=== PATIENT | female | born 1955 | race Caucasian/White ===

== ENCOUNTER 2018-05-31 00:23 | Inpatient (IN) | payer BC ==
[2018-05-31] MEDS ORDERED: ACETAMINOPHEN 1000 MG/100 ML VIAL (NON FORMULARY) IVPB ONE ×2 (00:59→15:15)
--- NOTE | 2018-05-31 01:07 | PDOC ---
History of Present Illness - General Chief Complaint: Shortness of Breath Stated Complaint: DIFFICULTY BREATHING Time Seen by Provider: 05/31/18 00:59 History Source: Patient - History of Present Illness Initial Comments: 05/31/18 01:09 The patient is a 63 year old female with no reported significant PMH who presents to our ED c/o acute onset of shortness of breath. States the shortness of breath started yesterday morning and worsened throughout the day prompting her visit to the ED. Notes a 1 month h/o productive (greenish and whitish) cough. Chest pain with coughing. Evaluated by PMD last week given albuterol inhaler and 4 day course of antibiotic (cannot recall name). States she used the inhaler all day today with little relief of her symptoms. ROS is positive for arm and back ache that started today. The patient denies abdominal pain, nausea/vomiting, diarrhea/constipation, dysuria/hematuria, numbness tingling. NKDA Surgical: C-S x2 Social: denies toxic habits PMD: Cannot recall name, as per EMR, orders placed by Nkechi Antoine and Main Caputo (analytical research chemist) Past History - Past Medical History Allergies/Adverse Reactions: Allergies Allergy/AdvReac Type Severity Reaction Status Date / Time No Known Allergies Allergy Verified 05/31/18 00:52 Home Medications: Ambulatory Orders Albuterol Sulfate [Proair Hfa] 8.5 gm IH Q6H 05/31/18 - Suicide/Smoking/Psychosocial Hx Smoking History: Never smoked Have you smoked in the past 12 months: No Information on smoking cessation initiated: No Hx Alcohol Use: No Drug/Substance Use Hx: No Review of Systems - Review of Systems Constitutional: No: Chills, Fever HEENTM: Yes: Nose Congestion, Throat Pain. No: Blurred Vision Respiratory: Yes: Shortness of Breath, Wheezing, Productive cough. No: Hemoptysis Cardiac (ROS): No: Lightheadedness, Palpitations, Syncope ABD/GI: No: Constipated, Diarrhea, Nausea, Vomiting *Physical Exam - Vital Signs Last Vital Signs Temp Pulse Resp BP Pulse Ox 100.6 F H 110 H 18 169/82 96 05/31/18 00:30 05/31/18 00:30 05/31/18 00:30 05/31/18 00:30 05/31/18 00:30 - Physical Exam Comments: 05/31/18 01:49 On 2L NC General Appearance: Yes: Appropriately Dressed, Thin HEENT: positive: Normal Voice. negative: Pharyngeal Erythema, Tonsillar Exudate , Tonsillar Erythema, TM Bulging, TM Dull Neck: positive: Trachea midline, Supple Respiratory/Chest: positive: Other (Scattered wheezing on anterior and posterior lung lee) Cardiovascular: positive: S1, S2, Tachycardia Gastrointestinal/Abdominal: positive: Normal Bowel Sounds, Soft. negative: Distended, Guarding, Rebound, Tenderness Extremity: positive: Normal Capillary Refill, Normal Inspection Integumentary: positive: Normal Color, Dry, Warm Heart Score/ECG Review - ECG Impressions Comment:: 05/31/18 02:39 ECG shows Sinus Tachycardia (HR 109) flattened T wave in V6, in comparison to ECG dated 09/10/2005 w/TWI in V6 ED Treatment Course - LABORATORY CBC & Chemistry Diagram: 05/31/18 01:30 05/31/18 01:30 Medical Decision Making - Medical Decision Making 05/31/18 01:27 63 year old female with acute onset of dyspnea. Tachycardic (114), Hypertensive (169/82) Febrile (100.6) @ presentation. Frontal diagnosis: PNA, Influenza, Viral syndrome, r/o ACS (less likely), r/o PE (less likely, no recent travel/immobilization). Will obtain basic labs, Influenza, CXR, UA/ Urine culture, CT Chest (given patient's 1 month h/o symptoms). 05/31/18 01:50 Reassessed @ bedside, trial off NC --> SpO@ 94%; Rectal Temp 100.6 05/31/18 02:29 CMP significant for CK 843 - unlikely rhabdo, however will give IV NS No leukocytosis CT pending 05/31/18 03:14 Influenza negative; @ CT 05/31/18 03:48 CT shows ground glass density in [place] - possibly developing PNA. Will start empiric coverage with Ceftriaxone/Azithro; patient s/p 2nd Duo Neb - remains tachycardic 130's; will reassess in 1 hour 05/31/18 04:18 Patient remains tachycardic, 94% on 2 L; given patient's new increased O2 demand and likely bronchitis --> PNA, will admit for further evaluation 05/31/18 04:30 Case d/w Dr. Gray; will admit for observation; patient counseled on plan of care; amenable to admission *DC/Admit/Observation/Transfer Diagnosis at time of Disposition: Pneumonia, Tachycardia, Increased oxygen demand, Tachypnea - Discharge Dispostion Condition at time of disposition: Fair Decision to Admit order: Yes - Referrals - Patient Instructions - Post Discharge Activity
--- NOTE | 2018-05-31 01:08 | PDOC ---
Attending Attestation - HPI HPI: 05/31/18 01:57 The patient is a 63 year old female, with no significant past medical history, who presents to the emergency department with, 2 days of shortness of breath. Patient endorses an associated 1 month of a productive cough with yellowish/ green sputum and chest pain secondary to her cough. She saw her PCP last week for the cough and was placed on an unknown antibiotic and albuterol inhaler, without relief prompting her visit to the ER tonight. She denies recent fevers, chills, headache or dizziness. She denies recent nausea, vomit, diarrhea or constipation. She denies recent dysuria, frequency, urgency or hematuria. Allergies: NKDA - Physicial Exam PE: 05/31/18 02:23 GENERAL: Tachypneic. HEAD: Normal with no signs of trauma. EYES: PERRLA, EOMI, sclera anicteric, conjunctiva clear. ENT: Ears normal, nares patent, oropharynx clear without exudates. Moist mucous membranes. NECK: Normal range of motion, supple without lymphadenopathy, JVD, or masses. +LUNGS: 96% on room air while sitting upright. Expiratory rhonchi. Speaking in 3 word sentences. +HEART:Tachycardic. No murmur, rub or gallop. ABDOMEN: Soft, nontender, normoactive bowel sounds. No guarding, no rebound. No masses palpable. EXTREMITIES: Normal range of motion, no edema. No clubbing or cyanosis. No erythema, or tenderness. NEUROLOGICAL: Cranial nerves II through XII grossly intact. Normal speech. No focal neurological deficits. MUSCULOSKELETAL: Back non-tender to palpation, no CVA tenderness SKIN: Warm, Dry, normal turgor, no rashes or lesions noted. - Medical Decision Making 05/31/18 03:47 EXAM: CTA CHEST No pulmonary embolism. No aortic dissection or aneurysm. Nonspecific ground glass densities left upper lobe, correlate clinically for slight possibility of developing pneumonia or atypical infection. No pleural effusions. Mediastinal lymph nodes less than 1 cm short axis. One or more of the following dose reduction techniques were used: automated exposure control, adjustment of the mA and/or kV according to patient size, use of iterative reconstructive technique. Read by: Sharla Carter M.D. <Minesh Ford - Last Filed: 05/31/18 03:47> - Resident Resident Name: Itzel Richardson - ED Attending Attestation I have performed the following: I have examined & evaluated the patient, The case was reviewed & discussed with the resident, I agree w/resident's findings & plan, Exceptions are as noted - Critical Care Time Total Critical Care Time: 60 Critical Care Statement: The care of this patient involved high complexity decision making to prevent further life threatening deterioration of the patient 's condition and/or to evaluate & treat vital organ system(s) failure or risk of failure. - Medical Decision Making Ms Gaston is a 63 yo F who presents to the ER s/p sudden onset of shortness of breath Low grade fevers No chest pain No palpitations No nausea or vomiting DD: Asthma exacerbation, Bronchitis, Pneumonia, effusion Given neb CT ordered EKG ordered 05/31/18 05:05 Laboratory Tests 05/31/18 05/31/18 05/31/18 01:30 01:30 01:45 WBC 9.4 Hgb 15.6 H Hct 48.1 H Plt Count 316 BUN 13 Creatinine 0.8 Creatine Kinase 283 H CK-MB (CK-2) 6.7 H Troponin I < 0.02 Influenza A (Rapid) Negative Influenza B (Rapid) Negative CT No HI, no pheumothorax Pt Tachypneac, requiring supplemental O2 Abx ordered Nebs ordered Solumedrol Will admit to hospitalist service Clinical Impression: Severe asthma exacerbation, initial presentation Pneumonia, initial presentation 05/31/18 06:26 <Dang Zafar - Last Filed: 06/03/18 16:55> Attestations - Attestations 05/31/18 01:58 Documentation prepared by Minesh Ford, acting as medical supervisor for Dang Zafar MD. <Minesh Ford - Last Filed: 05/31/18 03:47>
[2018-05-31] MEDS ORDERED: ALBUTEROL SO4 2.5/IPRATROPIUM 0.5 INH SOL 3 ML VIAL.NEB. NEB ONE ×5 (01:18→17:45)
[2018-05-31] MEDS ORDERED: ACETAMINOPHEN INJECTION 100 ML IVPB ONE (01:19)
[2018-05-31] MEDS: ALBUTEROL SO4 2.5/IPRATROPIUM 0.5 INH SOL 3 ML VIAL.NEB. NEB SCH ×7 (01:20→20:15)
[2018-05-31 02:08] LABS: BASO % 0.6 % (0-2.0); MCH 29.3 pg (25.7-33.7)
[2018-05-31 02:19] LABS: ALBUMIN 4.2 g/dl (3.4-5.0); ALK PHOS 148 U/L (45-117); ANION GAP 5 MMOL/L (8-16); BILIRUBIN,TOTAL 0.3 mg/dL (0.2-1); BLOOD UREA NITROGEN 13 mg/dL (7-18); CALCIUM 8.8 mg/dL (8.5-10.1); CHLORIDE 104 mmol/L (98-107); CO2 31 mmol/L (21-32); CREATININE 0.8 mg/dL (0.55-1.3); GLUCOSE,RANDOM 126 mg/dL (74-106); N-TERMINAL BNP 35.5 pg/ml (5-125); POTASSIUM 4.9 mmol/L (3.5-5.1); SGOT/AST 39 U/L (15-37); SGPT/ALT 26 U/L (13-61); SODIUM 139 mmol/L (136-145); TOT PROT 8.6 g/dl (6.4-8.2)
[2018-05-31 02:20] LABS: EOS % 4.6 % (0-4.5); HEMATOCRIT 48.1 % (32.4-45.2); HEMOGLOBIN 15.6 GM/dL (10.7-15.3); LYMPH % 8.3 % (8-40); MCHC 32.3 g/dl (32.0-36.0); MEAN CELL VOLUME 90.7 fl (80-96); MEAN PLT VOLUME 8.1 fl (7.5-11.1); MONO % 6.5 % (3.8-10.2); PLATELET COUNT 316 K/MM3 (134-434); RBC 5.31 M/mm3 (3.60-5.2); RDW 13.6 % (11.6-15.6); WHITE BLOOD COUNT 9.4 K/mm3 (4.0-10.0)
[2018-05-31] MEDS ORDERED: SODIUM CHLORIDE 0.9% 500 ML INFUS.BAG IV ONE (02:28)
[2018-05-31] MEDS ORDERED: AZITHROMYCIN IVPB 500 MG in DEXTROSE 5%-WATER - 250 ML IVPB ONE (03:48)
--- NOTE | 2018-05-31 04:46 | HP ---
CHIEF COMPLAINT: SOB, Cough, Wheezing PCP: Dr. Nkechi Antoine HISTORY OF PRESENT ILLNESS: This is a 63 y/o woman with no past medical history. Who presents to the ED with a productive cough green-white phlegm and SOB x 1 month worse last night. Patient reports seeing her PMD 1-2 weeks ago for same taking an ?antibiotic, which she could not name which she completed and given a MDI with little improvement. Patient reports having chest tightness and wheezing using her MDI all day with no relief. She states "l could not lay down or sit down because I felt like I could not breath". Patient reports having fever and chills the day before. Patient denies dizziness, AP, N/V/D, constipation, dysuria. Patient denies recent travel, no exposure to sick contacts. Patient was not recently vaccinated for Influenza. ER course was notable for: (1) T Max 100.6 (2) HR 110~120s (3) CTA- neg PE, no dissection, no aneurysm, nonspecific ground glass densities left upper lobe, ?pneumonia or atypical infection, no pleural effusions (4) Rapid Influenza- neg A and B Recent Travel: None PAST MEDICAL HISTORY: None PAST SURGICAL HISTORY: Social History: Smoking: Never Alcohol: Denies Drugs: Denies Family History: Unable to Obtain due to clinical condition Allergies No Known Allergies Allergy (Verified 05/31/18 00:52) HOME MEDICATIONS: Home Medications Medication Instructions Recorded Albuterol Sulfate [Proair Hfa] 8.5 gm IH Q6H 05/31/18 REVIEW OF SYSTEMS CONSTITUTIONAL: fever, chills, Labored breathing Absent: diaphoresis, generalized weakness, malaise, loss of appetite, weight change HEENT: nasal congestion, throat pain Absent: rhinorrhea, throat swelling, difficulty swallowing, mouth swelling, ear pain, eye pain, visual changes CARDIOVASCULAR: chest tightness Absent: syncope, palpitations, irregular heart rate, lightheadedness, peripheral edema RESPIRATORY: cough, shortness of breath, dyspnea with exertion, orthopnea, wheezing Absent: stridor, hemoptysis GASTROINTESTINAL: Absent: abdominal pain, abdominal distension, nausea, vomiting, diarrhea, constipation, melena, hematochezia GENITOURINARY: Absent: dysuria, frequency, urgency, hesitancy, hematuria, flank pain, genital pain MUSCULOSKELETAL: Absent: myalgia, arthralgia, joint swelling, back pain, neck pain SKIN: Absent: rash, itching, pallor HEMATOLOGIC/IMMUNOLOGIC: Absent: easy bleeding, easy bruising, lymphadenopathy, frequent infections ENDOCRINE: Absent: unexplained weight gain, unexplained weight loss, heat intolerance, cold intolerance NEUROLOGIC: Absent: headache, focal weakness or paresthesias, dizziness, unsteady gait, seizure, mental status changes, bladder or bowel incontinence PSYCHIATRIC: Absent: anxiety, depression, suicidal or homicidal ideation, hallucinations. PHYSICAL EXAMINATION Vital Signs - 24 hr 05/31/18 05/31/18 05/31/18 00:30 02:09 02:36 Temperature 100.6 F H 100.6 F H Pulse Rate 110 H 110 H Respiratory 18 23 H Rate Blood Pressure 169/82 Blood Pressure 150/85 [Right Arm] O2 Sat by Pulse 96 98 Oximetry (%) GENERAL: Awake, alert, and fully oriented, standing at bedside in moderate respiratory distress. HEAD: Normal with no signs of trauma. EYES: Pupils equal, round and reactive to light, extraocular movements intact, sclera anicteric, conjunctiva clear. No lid lag. EARS, NOSE, THROAT: Dry mucous membranes. Ears normal, nares patent, oropharynx clear without exudates. NECK: Normal range of motion, supple without lymphadenopathy, JVD, or masses. LUNGS: Breath sounds with scattered wheezes,and coarse crackles throughout all lee, with accessory muscle use. HEART: Tachycardia with regular rhythm, normal S1 and S2 without murmur, rub or gallop. ABDOMEN: Soft, nontender, not distended, normoactive bowel sounds, no guarding, no rebound, no masses. No hepatomegaly or splenomegaly. MUSCULOSKELETAL: Normal range of motion at all joints. No bony deformities or tenderness. No CVA tenderness. UPPER EXTREMITIES: 2+ pulses, warm, well-perfused. No cyanosis. No clubbing. No peripheral edema. LOWER EXTREMITIES: 2+ pulses, warm, well-perfused. No calf tenderness. No peripheral edema. NEUROLOGICAL: Cranial nerves II-XII intact. Normal speech. Normal gait. PSYCHIATRIC: Cooperative. Good eye contact. Appropriate mood and affect. SKIN: Warm, dry, normal turgor, no rashes or lesions noted, normal capillary refill. Laboratory Results - last 24 hr 05/31/18 05/31/18 05/31/18 01:30 01:30 01:45 WBC 9.4 RBC 5.31 H Hgb 15.6 H Hct 48.1 H MCV 90.7 MCH 29.3 MCHC 32.3 RDW 13.6 Plt Count 316 MPV 8.1 Absolute Neuts (auto) 7.5 Neutrophils % 80.0 Lymphocytes % 8.3 Monocytes % 6.5 Eosinophils % 4.6 H Basophils % 0.6 Nucleated RBC % 0 Sodium 139 Potassium 4.9 Chloride 104 Carbon Dioxide 31 Anion Gap 5 L BUN 13 Creatinine 0.8 Creat Clearance w eGFR > 60 Random Glucose 126 H Calcium 8.8 Total Bilirubin 0.3 AST 39 H ALT 26 Alkaline Phosphatase 148 H Creatine Kinase 283 H Creatine Kinase Index 2.3 CK-MB (CK-2) 6.7 H Troponin I < 0.02 B-Natriuretic Peptide 35.5 Total Protein 8.6 H Albumin 4.2 Influenza A (Rapid) Negative Influenza B (Rapid) Negative Radiological Studies: 05/31/18 03:47 EXAM: CTA CHEST No pulmonary embolism. No aortic dissection or aneurysm. Nonspecific ground glass densities left upper lobe, correlate clinically for slight possibility of developing pneumonia or atypical infection. No pleural effusions. Mediastinal lymph nodes less than 1 cm short axis. One or more of the following dose reduction techniques were used: automated exposure control, adjustment of the MA and/or kV according to patient size, use of iterative reconstructive technique. Read by: Sharla Carter M.D. ASSESSMENT/PLAN: This is a 63 y/o woman with no past medical history. Admitted to Telemetry for Acute Respiratory Distress, Atypical Pneumonia for further evaluation of their emergent medical condition. Plan: Will admit to Telemetry secondary to respiratory distress and consistent Tachycardia 110s~120s requiring Cardiac Monitoring Concern for impending Respiratory Failure if no improvement will need to be upgraded to ICU and possible intubation Likely secondary to Atypical Pneumonia vs Reactive Airway Disease Patient Failed Outpatient Therapy CTA r/o PE see above PERC Rule 2 Wells Score 4.5 [id number] 1 Rapid Influenza done in ED- neg for A& B Appreciate Pulmonology Consult Appreciate ID Consult Duonebs x4 given in ED Continue Atrovent secondary to tachycardia Consider Xopenex Will give Mag Sulfate 2gm x1 Will give Solumederol Continue Ceftriaxone and Azithromycin for PNA Blood Cultures-pending Will order UA, Urine Culture O2 Monitor CBC, BMP FEN- PO Fluids as tolerated, replete lytes prn, Regular Diet as tolerated DVT ppx- OOB, SCDs, Heparin SQ Code Status: Full Code Dispo: Requires Inpatient Care Problem List - Problem (1) Pneumonia Code(s): J18.9 - PNEUMONIA, UNSPECIFIED ORGANISM (2) Tachycardia Code(s): R00.0 - TACHYCARDIA, UNSPECIFIED (3) SOB (shortness of breath) Code(s): R06.02 - SHORTNESS OF BREATH (4) Increased oxygen demand Code(s): R06.89 - OTHER ABNORMALITIES OF BREATHING (5) Tachypnea Code(s): R06.82 - TACHYPNEA, NOT ELSEWHERE CLASSIFIED Visit type - Emergency Visit Emergency Visit: Yes ED Registration Date: 05/31/18 Care time: The patient presented to the Emergency Department on the above date and was hospitalized for further evaluation of their emergent condition. - New Patient This patient is new to me today: Yes Date on this admission: 05/31/18 - Critical Care Critical Care patient: Yes Total Critical Care Time (in minutes): 40 Critical Care Statement: The care of this patient involved high complexity decision making to prevent further life threatening deterioration of the patient 's condition and/or to evaluate & treat vital organ system(s) failure or risk of failure.
[2018-05-31] MEDS ORDERED: IPRATROPIUM BR 0.02% 0.5 MG/2.5 ML VIAL.NEB. NEB PRN (05:01)
[2018-05-31] MEDS ORDERED: AZITHROMYCIN IVPB 500 MG/250 ML BAG IVPB ONE (05:31)
[2018-05-31] MEDS ORDERED: cefTRIAXone SODIUM 1 GM VIAL ONE (05:31)
[2018-05-31] MEDS ORDERED: MAGNESIUM SULF 50% (8.12 MEQ/2 ML-1 GM VIAL) IVPB ONE (06:20)
[2018-05-31] MEDS ORDERED: MAGNESIUM 1GM/D5W - 2 GM/200 ML IVPB IVPB ONE (06:35)
[2018-05-31] MEDS ORDERED: methylPREDNISolone NA SUCC 125 MG/2 ML VIAL IVPUSH ONE (07:24)
[2018-05-31] MEDS ORDERED: methylPREDNISolone NA SUCC 125 MG/2 ML VIAL ONE (07:35)
--- NOTE | 2018-05-31 07:45 | HOSP ---
Subjective - Review of Symptoms Pulmonary: Yes: Dyspnea Cardiovascular: Yes: Orthopnea Gastrointestinal: Yes: Other Neurological: Yes: Weakness Physical Examination Vital Signs: Vital Signs Temperature 100.6 F H 05/31/18 02:09 Pulse Rate 123 H 05/31/18 07:18 Respiratory Rate 24 H 05/31/18 07:18 Blood Pressure 154/82 05/31/18 07:18 O2 Sat by Pulse Oximetry (%) 99 05/31/18 07:18 Constitutional: Yes: Well Nourished Eyes: Yes: WNL HENT: Yes: Atraumatic Neck: Yes: Supple Cardiovascular: Yes: Tachycardia Respiratory: Yes: Accessory Muscle Use, On BiPap, Orthopnea, SOB, SOB on Exertion, Wheezes Gastrointestinal: Yes: Soft Labs: CBC, BMP 05/31/18 01:30 05/31/18 01:30 Hospitalist Encounter Assessment: Received signout on this patient and concern for labored breathing, wheezing with accessory muscle use. Went to see patient in the ED. patient sitting in chair, in moderate respiratory distress, breathing at 28 breaths per minute, with accessory muscle use. She is awake, alert and able to answer questions appropriately. Bipap applied by ED staff. Respiratory therapist at the bedside. ABG being done now. tachycardia 122, 28 breaths per minute, bp 154/82 plan: give solumedrol 125mg x 1 now start on standing solumedrol pulmonary consult continue antibiotics monitor respiratory status on bipap, may need ICU. close monitoring needed
[2018-05-31 07:50] LABS: ARTERIAL BLD GAS O2 SATURATION 97.7 % (90-98.9); ARTERIAL BLOOD GAS BASE EXCESS -2.3 meq/l (-2-2); ARTERIAL BLOOD GAS PCO2 40.8 mmHg (35-45); ARTERIAL BLOOD GAS pH 7.36 (7.35-7.45)
[2018-05-31 07:51] LABS: ALLENS TEST POSITIVE
[2018-05-31] MEDS ORDERED: ALBUTEROL SO4 0.083% IH SOL 2.5 MG/3 ML VIAL.NEB. NEB PRN ×2 (08:44→11:47)
[2018-05-31] MEDS ORDERED: ALBUTEROL SO4 2.5/IPRATROPIUM 0.5 INH SOL 3 ML VIAL.NEB. NEB SCH (08:44)
--- NOTE | 2018-05-31 08:47 | CONSULT ---
Consultation: REQUESTING PROVIDER: CONSULT REQUEST: We have been asked to medically evaluate this patient for (pulm -critical care ). HISTORY OF PRESENT ILLNESS: 63 y/o F with no PMH came to ER because of difficulty in breathing. Pt states that she was diagnosed with pneumonia 3 week ago and was started on antibiotic for 5 days. But She developed productive cough ( yellow or green sputum) after 2 week and and which was getting worse over the time. Pt states that she developed short of breath about the same time 2 week ago and was started on albuterol inhaler by her doctor which helped her initially but yesterday her breathing got worse for which she came to hospital. Also reports fever and chills just one episode yesterday, didn't check her temp. Denies dizziness, lightheadedness, chest pain, swelling in legs. Denies orthopnea, paroxysmal dyspnea. denies recent travel. Denies smoking In ER pt got solumedrol 125, azithromycin, ceftriaxone, mag 2gm. Started on BIPAP --- feeling little better donna she came to hospital. CTA done in ER no PE. REVIEW OF SYSTEMS: CONSTITUTIONAL: Absent: fever, chills, diaphoresis, g HEENT: Absent: rhinorrhea, nasal congestion, throat pain, throat swelling, difficulty swallowing, CARDIOVASCULAR: Absent: chest pain, syncope, palpitations, irregular heart rate, lightheadedness , peripheral edema RESPIRATORY: Absent: cough, shortness of breath, dyspnea with exertion, orthopnea, wheezing, stridor, hemoptysis GASTROINTESTINAL: Absent: abdominal distension, nausea, vomiting, diarrhea, constipation, melena, hematochezia GENITOURINARY: Absent: dysuria, frequency, urgency, SKIN: Absent: rash, itching, pallor HEMATOLOGIC/IMMUNOLOGIC: Absent: easy bleeding, easy bruising, NEUROLOGIC: Absent: headache, focal weakness or paresthesias, dizziness, unsteady gait, seizure, mental status changes, bladder or bowel incontinence PHYSICAL EXAMINATION Vital Signs - 24 hr 05/31/18 05/31/18 05/31/18 00:30 02:09 02:36 Temperature 100.6 F H 100.6 F H Pulse Rate 110 H 110 H Pulse Rate [ Apical] Respiratory 18 23 H Rate Blood Pressure 169/82 Blood Pressure 150/85 [Right Arm] O2 Sat by Pulse 96 98 Oximetry (%) 11/05/31/18 05/31/18 07:04 07:18 07:43 Temperature Pulse Rate Pulse Rate [ 130 H 123 H 117 H Apical] Respiratory 34 H 24 H 24 H Rate Blood Pressure Blood Pressure 154/82 154/82 [Right Arm] O2 Sat by Pulse 95 99 100 Oximetry (%) GENERAL: Awake, alert, and fully oriented, in no acute distress. HEAD: Normal with no signs of trauma. EARS, NOSE, THROAT: Ears normal, nares patent, oropharynx clear without exudates. Moist mucous membranes. NECK: Normal range of motion, supple without lymphadenopathy, JVD, or masses. LUNGS: b/l corse breathing, expiration wheezing present more on R side, tachypnia, no accessory muscle use, speaking in full sentences HEART: Regular rate and rhythm, normal S1 and S2 without murmur, tachycardia ABDOMEN: Soft, nontender, not distended, normoactive bowel sounds, no guarding, no rebound, no masses. MUSCULOSKELETAL: Normal range of motion at all joints. No bony deformities or tenderness. No CVA tenderness. UPPER EXTREMITIES: 2+ pulses, warm, well-perfused. No cyanosis. LOWER EXTREMITIES: warm, well-perfused. No calf tenderness. No peripheral edema. SKIN: Warm, dry, Laboratory Results - last 24 hr 05/31/18 05/31/18 05/31/18 01:30 01:30 01:45 WBC 9.4 RBC 5.31 H Hgb 15.6 H Hct 48.1 H MCV 90.7 MCH 29.3 MCHC 32.3 RDW 13.6 Plt Count 316 MPV 8.1 Absolute Neuts (auto) 7.5 Neutrophils % 80.0 Lymphocytes % 8.3 Monocytes % 6.5 Eosinophils % 4.6 H Basophils % 0.6 Nucleated RBC % 0 Anticoagulation Therapy Puncture Site ABG pH ABG pCO2 at Pt Temp ABG pO2 at Pt Temp ABG HCO3 ABG O2 Sat (Measured) ABG O2 Content ABG Base Excess Subhash Test O2 Delivery Device Oxygen Flow Rate Vent Mode Vent Rate Mechanical Rate Pressure Support Vent Sodium 139 Potassium 4.9 Chloride 104 Carbon Dioxide 31 Anion Gap 5 L BUN 13 Creatinine 0.8 Creat Clearance w eGFR > 60 Random Glucose 126 H Calcium 8.8 Total Bilirubin 0.3 AST 39 H ALT 26 Alkaline Phosphatase 148 H Creatine Kinase 283 H Creatine Kinase Index 2.3 CK-MB (CK-2) 6.7 H Troponin I < 0.02 B-Natriuretic Peptide 35.5 Total Protein 8.6 H Albumin 4.2 Influenza A (Rapid) Negative Influenza B (Rapid) Negative 05/31/18 07:45 WBC RBC Hgb Hct MCV MCH MCHC RDW Plt Count MPV Absolute Neuts (auto) Neutrophils % Lymphocytes % Monocytes % Eosinophils % Basophils % Nucleated RBC % Anticoagulation Therapy No Result Required. Puncture Site Right radial ABG pH 7.36 ABG pCO2 at Pt Temp 40.8 ABG pO2 at Pt Temp 108.0 H ABG HCO3 22.5 ABG O2 Sat (Measured) 97.7 ABG O2 Content 19.9 ABG Base Excess -2.3 L Subhash Test Positive O2 Delivery Device No Result Required. Oxygen Flow Rate No Result Required. Vent Mode No Result Required. Vent Rate No Result Required. Mechanical Rate No Result Required. Pressure Support Vent No Result Required. Sodium Potassium Chloride Carbon Dioxide Anion Gap BUN Creatinine Creat Clearance w eGFR Random Glucose Calcium Total Bilirubin AST ALT Alkaline Phosphatase Creatine Kinase Creatine Kinase Index CK-MB (CK-2) Troponin I B-Natriuretic Peptide Total Protein Albumin Influenza A (Rapid) Influenza B (Rapid) Active Medications Generic Name Dose Route Start Last Admin Trade Name Freq PRN Reason Stop Dose Admin Albuterol Sulfate 1 amp 05/31/18 08:44 Ventolin 0.083% Nebulizer Soln - NEB Q4H PRN SHORT OF BREATH/WHEEZING Albuterol/Ipratropium 1 amp 05/31/18 08:44 Duoneb - NEB RQID [facility] Azithromycin 500 mg in 250 mls @ 250 mls/hr 06/01/18 10:00 Zithromax 500mg Ivpb (Pre-Docked) IVPB DAILY [facility] Ceftriaxone Sodium 1 gm/ 50 mls @ 200 mls/hr 06/01/18 10:00 Dextrose IVPB DAILY [facility] Protocol Sodium Chloride 1,000 mls @ 75 mls/hr 05/31/18 08:45 Normal Saline - IV ASDIR KYAW Ipratropium [place] 1 amp 05/31/18 08:00 Atrovent 0.02% Nebulizer - NEB RQID [facility] Methylprednisolone Sodium Succinate 60 mg 05/31/18 10:00 Solu-Medrol - IVPUSH Q8H-IV [facility] Methylprednisolone Sodium Succinate 40 mg 05/31/18 09:00 Solu-Medrol - IVPUSH Q6H-IV [facility] Pantoprazole Sodium 40 mg 05/31/18 10:00 Protonix Iv IVPUSH DAILY [facility] ABG Results ABG pH 7.36 (7.35-7.45) 05/31/18 07:45 ABG pCO2 at Pt Temp 40.8 mmHg (35-45) 05/31/18 07:45 ABG pO2 at Pt Temp 108.0 mmHg (80-100) H 05/31/18 07:45 ABG HCO3 22.5 meq/L (22-26) 05/31/18 07:45 ABG O2 Sat (Measured) 97.7 % (90-98.9) 05/31/18 07:45 ABG O2 Content 19.9 % vol (15-22) 05/31/18 07:45 ABG Base Excess -2.3 meq/l (-2-2) L 05/31/18 07:45 ASSESSMENT/PLAN: 63 y/o F with no PMH who was diagnosed with pneumonia 3 week ago now came to ER because of difficulty in breathing and cough. Foud to have wheezing b/l R> L Acute respiratory failure likely from acute asthma exabration from bronchospasm from cough ? pneumonia. 02 to keep spo2 > 90. Iv steroid for now solumedrol 40mg q6h Duoneb neb qid kyaw albuterol prn antibiotics as per primary team. montelucast CT chest reviewed abg reviewed. BIPAP support for now to decrease work of breathing Dispo: We will continue to follow the patient. Thank you for this consultative opportunity. Visit type - Emergency Visit Emergency Visit: Yes ED Registration Date: 05/31/18 Care time: The patient presented to the Emergency Department on the above date and was hospitalized for further evaluation of their emergent condition. - New Patient This patient is new to me today: Yes Date on this admission: 06/13/18 - Critical Care Critical Care patient: Yes Total Critical Care Time (in minutes): 45 Critical Care Statement: The care of this patient involved high complexity decision making to prevent further life threatening deterioration of the patient 's condition and/or to evaluate & treat vital organ system(s) failure or risk of failure.
[2018-05-31] MEDS: SODIUM CHLORIDE 1,000 ML IV SCH ×3 (09:03→12:00)
[2018-05-31] MEDS: IPRATROPIUM BR 0.02% 0.5 MG/2.5 ML VIAL.NEB. NEB SCH ×2 (09:03→11:28)
[2018-05-31] MEDS ORDERED: IPRATROPIUM BR 0.02% 0.5 MG/2.5 ML VIAL.NEB. NEB ONE (09:10)
[2018-05-31] MEDS ORDERED: SODIUM CHLORIDE 1,000 ML IV STA ×2 (09:25→22:55)
[2018-05-31] MEDS ORDERED: methylPREDNISolone NA SUCC 40 MG/1 ML VIAL IVPUSH SCH ×2 (10:00→15:00)
[2018-05-31] MEDS ORDERED: PANTOPRAZOLE SODIUM 40 MG VIAL IVPUSH SCH (10:00)
[2018-05-31] MEDS ORDERED: MONTELUKAST NA 10 MG TABLET PO ONE (10:00)
--- NOTE | 2018-05-31 10:42 | PN ---
Progress Note, Physician Chief Complaint: spoke with hospitalist and RN pt is in ICU-- on BIPAP awake and alert Appears to be anxious - Current Medication List Current Medications: Active Medications Albuterol Sulfate (Ventolin 0.083% Nebulizer Soln -) 1 amp NEB Q4H PRN PRN Reason: SHORT OF BREATH/WHEEZING Albuterol/Ipratropium (Duoneb -) 1 amp NEB RQID [facility] Last Admin: 05/31/18 09:03 Dose: 1 amp Chlorhexidine Gluconate (Hibiclens For Decolonization -) 1 applic TP HS [facility] Azithromycin (Zithromax 500mg Ivpb (Pre-Docked)) 500 mg in 250 mls @ 250 mls/ hr IVPB DAILY [facility] Ceftriaxone Sodium 1 gm/ (Dextrose) 50 mls @ 200 mls/hr IVPB DAILY [facility]; Protocol Sodium Chloride (Normal Saline -) 1,000 mls @ 75 mls/hr IV ASDIR [facility] Last Admin: 05/31/18 09:03 Dose: 75 mls/hr Ipratropium [place] (Atrovent 0.02% Nebulizer -) 1 amp NEB RQID [facility] Last Admin: 05/31/18 09:03 Dose: 1 amp Methylprednisolone Sodium Succinate (Solu-Medrol -) 40 mg IVPUSH Q6H-IV [facility] Montelukast Sodium (Singulair -) 10 mg PO HS [facility] Mupirocin (Bactroban Ointment (For Decolonization) -) 1 applic NS BID [facility] Stop: 06/05/18 09:59 Pantoprazole Sodium (Protonix Iv) 40 mg IVPUSH DAILY [facility] - Objective Vital Signs: Vital Signs Temperature 99.0 F 05/31/18 09:59 Pulse Rate 118 H 05/31/18 09:59 Respiratory Rate 27 H 05/31/18 09:59 Blood Pressure 160/96 05/31/18 09:59 O2 Sat by Pulse Oximetry (%) 100 05/31/18 09:59 Constitutional: Yes: Anxious Cardiovascular: Yes: Regular Rate and Rhythm Respiratory: Yes: Diminished, Rhonchi Gastrointestinal: Yes: Normal Bowel Sounds, Soft. No: Tenderness Edema: No Neurological: Yes: Alert, Oriented Labs: CBC, BMP 05/31/18 01:30 05/31/18 01:30 Problem List - Problems (1) Acute respiratory failure with hypoxia Code(s): J96.01 - ACUTE RESPIRATORY FAILURE WITH HYPOXIA (2) Pneumonia Code(s): J18.9 - PNEUMONIA, UNSPECIFIED ORGANISM (3) SOB (shortness of breath) Code(s): R06.02 - SHORTNESS OF BREATH Assessment/Plan A/P ?pneumonia Asthma exacerbation Acute hypoxic respiratory failure -- monitor in ICU -- will need nebs -- spoke with pt's -- she was on po antibiotics for about 4 days prior - - from DR Avery's office -- iv solumedrol -- abg noted -- iv antibiotics -- check urine antigens -- dvt prophylaxis -- condition guarded
--- NOTE | 2018-05-31 11:33 | EKG ---
Test Reason : Blood Pressure : / mmHG Vent. Rate : 109 BPM Atrial Rate : 109 BPM P-R Int : 152 ms QRS Dur : 086 ms QT Int : 320 ms P-R-T Axes : 064 085 003 degrees QTc Int : 430 ms SINUS TACHYCARDIA T WAVE ABNORMALITY, CONSIDER INFERIOR ISCHEMIA ABNORMAL ECG WHEN COMPARED WITH ECG OF 10-SEP-2005 13:44, VENT. RATE HAS INCREASED BY [address] NOW DEPRESSED IN INFERIOR LEADS INVERTED T WAVES HAVE REPLACED NONSPECIFIC T WAVE ABNORMALITY IN INFERIOR LEADS Confirmed by JESSICA SINGH, JOAN ([id number]) on 05/31/2018 11:32:30 AM Referred By: Confirmed By:JOAN LOPEZ MD
[2018-05-31] MEDS ORDERED: IPRATROPIUM BR 0.02% 0.5 MG/2.5 ML VIAL.NEB. NEB SCH (12:00)
--- NOTE | 2018-05-31 12:54 | PN ---
Teaching Attending Note Name of Resident: Jorge Morin ATTENDING PHYSICIAN STATEMENT I saw and evaluated the patient. I reviewed the resident's note and discussed the case with the resident. I agree with the resident's findings and plan as documented. SUBJECTIVE: Pt seen and examined in the ICU. Admitted with shortness of breath, cough and wheezing. Now on BiPAP still tachypneic with labored breaths. Low grade fevers and mosaic attenuation seen on CTA chest. OBJECTIVE: Vital Signs Period Temp Pulse Resp BP Sys/Massey Pulse Ox Last 24 Hr 99.0 F-100.6 F 101-130 18-34 147-169/82-96 95-100 Intake & Output 05/28/18 05/29/18 05/30/18 05/31/18 23:59 23:59 23:59 23:59 Intake Total 1000 Output Total 800 Balance 200 Weight 61.552 kg Gen: tachypneic on BiPAP Heart: tachycardic, regular Lung: diffuse wheezes, rhonchi Abd: soft, nontender Ext: no edema CBC, BMP 05/31/18 01:30 05/31/18 01:30 Active Medications Albuterol Sulfate (Ventolin 0.083% Nebulizer Soln -) 1 amp NEB Q4H PRN PRN Reason: SHORT OF BREATH/WHEEZING Albuterol/Ipratropium (Duoneb -) 1 amp NEB RQ4H [facility] Last Admin: 05/31/18 11:40 Dose: 1 amp Chlorhexidine Gluconate (Hibiclens For Decolonization -) 1 applic TP HS [facility] Azithromycin (Zithromax 500mg Ivpb (Pre-Docked)) 500 mg in 250 mls @ 250 mls/ hr IVPB DAILY [facility] Ceftriaxone Sodium 1 gm/ (Dextrose) 50 mls @ 200 mls/hr IVPB DAILY [facility]; Protocol Sodium Chloride (Normal Saline -) 1,000 mls @ 75 mls/hr IV ASDIR [facility] Methylprednisolone Sodium Succinate (Solu-Medrol -) 40 mg IVPUSH Q6H-IV [facility] Montelukast Sodium (Singulair -) 10 mg PO HS [facility] Mupirocin (Bactroban Ointment (For Decolonization) -) 1 applic NS BID [facility] Stop: 06/05/18 21:59 Pantoprazole Sodium (Protonix Iv) 40 mg IVPUSH DAILY [facility] ASSESSMENT AND PLAN: Acute Bronchospasm r/o Pneumonia vs Acute Bronchitis - continue medrol - inhaled bronchodilators standing and PRN - on empiric antibiotics - send viral screen - O2 to keep Spo2 >90% - BiPAP to assist in work of breathing - ICU monitoring for tenuous respiratory status critical care time spent in reviewing chart, evaluating patient and formulating plan 35 min
--- NOTE | 2018-05-31 14:01 | CON.ID ---
Consult Consult Specialty:: infectious diseases Referred by:: Reason for Consultation:: resp fialure,pneumonia - History of Present Illness Chief Complaint: inability to breathe History of Present Illness: 63 y/o F with no PMH admitted to icu because of difficulty in breathing. Pt states that she was diagnosed with pneumonia 3 week ago and was started on antibiotic for 5 days. But then She developed productive cough( yellow or green sputum) after 2 week and and which was getting worse over the time. Pt states that she developed short of breath about the same time 2 week ago and was started on albuterol inhaler by her doctor which helped her initially but yesterday her breathing got worse for which she came to hospital. Also reports fever and chills just one episode yesterday, didn't check her temp. Denies dizziness, lightheadedness, chest pain, swelling in legs. Denies orthopnea, paroxysmal dyspnea. denies recent travel. Denies smoking In ER pt got solumedrol 125, azithromycin, ceftriaxone, mag 2gm. Started on BIPAP --- feeling little better since she came to hospital. currently on bipap - History Source History Provided By: Patient, Medical Record Limitations to Obtaining History: Clinical Condition - Past Medical History ...: No - Alcohol/Substance Use Hx Alcohol Use: No - Smoking History Smoking history: Never smoked Have you smoked in the past 12 months: No Home Medications - Allergies Allergies/Adverse Reactions: Allergies Allergy/AdvReac Type Severity Reaction Status Date / Time No Known Allergies Allergy Verified 05/31/18 00:52 - Home Medications Home Medications: Ambulatory Orders Levofloxacin [Levaquin] 500 mg PO DAILY #5 tablet 06/04/18 RX: Lactobacillus Acidophilus [Acidophilus Lactobacilli] 1 each PO DAILY #14 capsule 06/04/18 RX: Montelukast Na [Singulair -] 10 mg PO HS #30 tablet 06/04/18 RX: Pantoprazole Sodium [Protonix -] 40 mg PO DAILY #10 tablet.ec 06/04/18 RX: predniSONE [Deltasone -] 5 mg PO ASDIR #78 tab 06/04/18 RX: Albuterol Sulfate [Proair Hfa] 8.5 gm IH Q6H #1 hfa.[email or web address] 06/05/18 Review of Systems - Review of Systems Constitutional: reports: No Symptoms Eyes: reports: No Symptoms HENT: reports: No Symptoms Neck: reports: No Symptoms Cardiovascular: reports: No Symptoms Respiratory: reports: Cough, SOB, SOB on Exertion Gastrointestinal: reports: No Symptoms Genitourinary: reports: No Symptoms Breasts: reports: No Symptoms Reported Musculoskeletal: reports: No Symptoms Integumentary: reports: No Symptoms Neurological: reports: No Symptoms Endocrine: reports: No Symptoms Hematology/Lymphatic: reports: No Symptoms Psychiatric: reports: No Symptoms Physical Exam Vital Signs: Vital Signs Temperature 99.0 F 05/31/18 11:22 Pulse Rate 101 H 05/31/18 12:04 Respiratory Rate 22 H 05/31/18 12:04 Blood Pressure 147/88 05/31/18 12:04 O2 Sat by Pulse Oximetry (%) 98 05/31/18 11:22 Constitutional: Yes: Well Nourished, Calm, Moderate Distress Eyes: Yes: Conjunctiva Clear HENT: Yes: Atraumatic, Normocephalic Neck: Yes: Supple, Trachea Midline Cardiovascular: Yes: Tachycardia Respiratory: Yes: On BiPap, Poor Air Entry Gastrointestinal: Yes: Normal Bowel Sounds, Soft Musculoskeletal: Yes: WNL Extremities: Yes: WNL Neurological: Yes: Alert, Oriented Psychiatric: Yes: Alert, Oriented Labs: CBC, BMP 05/31/18 01:30 05/31/18 01:30 Imaging - Results Cat Scan: Report Reviewed, Image Reviewed Assessment/Plan Problem List - Problems (1) Acute respiratory failure with hypoxia Code(s): J96.01 - ACUTE RESPIRATORY FAILURE WITH HYPOXIA (2) Pneumonia Code(s): J18.9 - PNEUMONIA, UNSPECIFIED ORGANISM (3) SOB (shortness of breath) Code(s): R06.02 - SHORTNESS OF BREATH wheezing pneumonia plan will start patient on zosyn close monitoring for tiring if tires might need intubation continue bipap rest as per icu cc 40 min
[2018-05-31] MEDS ORDERED: PIPERACILLIN/TAZOBACTAM 3.375 GM VIAL IVPB ONE (14:12)
[2018-05-31] MEDS ORDERED: DEXTROSE 5%-WATER - 50 ML IVPB ONE (14:12)
[2018-05-31] MEDS: methylPREDNISolone NA SUCC 40 MG/1 ML VIAL IVPUSH SCH ×2 (14:15→22:13)
[2018-05-31] MEDS: PIPERACILLIN/TAZOB 3.375 GM 3.375 GM in DEXTROSE 5%-WATER - 50 ML IVPB SCH ×2 (14:16→18:00)
[2018-05-31] MEDS ORDERED: ONDANSETRON 4 MG/2 ML VIAL IVPUSH ONE (14:52)
--- NOTE | 2018-05-31 14:58 | ECHO ---
Name: KRISHNA CHURCH Exam:Adult Echocardiogram Study Date: 05/31/2018 02:00 PM Age: 63 yrs Reason For Study: SHORTNESS OF BREATH Height: 63 in Weight: 126 lb BSA: 1.6 m2 BP: 147/88 mmHg MMode/2D Measurements & Calculations IVSd: 0.77 cm Ao root diam: 2.6 cm LVIDd: 4.2 cm LA dimension: 3.2 cm LVIDs: 2.7 cm LVPWd: 0.70 cm EDV(Teich): 78.9 ml ESV(Teich): 27.0 ml Doppler Measurements & Calculations MV E max ezio: 48.4 cm/sec Med Peak E' Ezio: 6.2 cm/sec MV A max ezio: 72.1 cm/sec Med E/e': 7.8 MV E/A: 0.67 Lat Peak E' Ezio: 7.7 cm/sec Lat E/e': 6.3 Procedure The study was technically difficult with many images being suboptimal in quality. Left Ventricle The left ventricular size, thickness and function are normal. The left ventricle is not well visualiz ed. The left ventricular ejection fraction is normal. Regional wall motion abnormalities cannot be excluded d ue to limited visualization. Right Ventricle The right ventricle is not well visualized. Atria Normal left and right atrial size and function. Mitral Valve The mitral valve is not well visualized. There is no mitral valve stenosis. There is mild mitral regurgitation. Tricuspid Valve The tricuspid valve is not well visualized. There is no tricuspid stenosis. There was insufficient TR detected to calculate RV systolic pressure. Aortic Valve The aortic valve is not well visualized. No hemodynamically significant valvular aortic stenosis. No aortic regurgitation is present. Pulmonic Valve The pulmonic valve is not well visualized. Great Vessels The aortic root is not well visualized. Pericardium/Pleura Due to the poor quality of the echocardiogram, a pericardial effusion cannot be excluded. Interpretation Summary The study was technically difficult with many images being suboptimal in quality. The left ventricular size, thickness and function are normal The left ventricle is not well visualized. The left ventricular ejection fraction is normal. Regional wall motion abnormalities cannot be excluded due to limited visualization. There is mild mitral regurgitation. There was insufficient TR detected to calculate RV systolic pressure. Due to the poor quality of the echocardiogram, a pericardial effusion cannot be excluded. MD Irwin Brar 05/31/2018 02:57 PM
[2018-05-31 15:39] LABS: URINE APPEARANCE CLEAR; URINE BILIRUBIN NEGATIVE (<2.0 mg/dL); URINE COLOR STRAW; URINE GLUCOSE (UA) 3+ (NEGATIVE); URINE KETONE NEGATIVE (NEGATIVE); URINE LEUK ESTERASE NEGATIVE (NEGATIVE); URINE NITRITE NEGATIVE (NEGATIVE); URINE PROTEIN NEGATIVE (NEGATIVE); URINE UROBILINOGEN NEGATIVE mg/dL (0.2-1.0)
[2018-05-31] MEDS ORDERED: PT OWN MED DRAWER 7, Y5N ONE (21:57)
[2018-05-31] MEDS: MONTELUKAST NA 10 MG TABLET PO SCH (22:13)
[2018-05-31] MEDS: MUPIROCIN 2% TOPICAL OINTMENT FOR DECOLONIZATION NS SCH (22:13)
[2018-05-31] MEDS: CHLORHEXIDINE GLUCONATE 4% CLEANSER FOR DECOLONIZATION TP SCH (22:14)
[2018-05-31] MEDS ORDERED: ACETAMINOPHEN 325 MG TABLET (FP) PO ONE (23:45)
[2018-06-01] MEDS: ALBUTEROL SO4 2.5/IPRATROPIUM 0.5 INH SOL 3 ML VIAL.NEB. NEB SCH ×7 (00:30→20:48)
[2018-06-01] MEDS ORDERED: PIPERACILLIN/TAZOBACTAM 3.375 GM VIAL IVPB ONE ×3 (01:08→18:38)
[2018-06-01] MEDS ORDERED: DEXTROSE 5%-WATER - 50 ML IVPB ONE ×3 (01:08→18:38)
[2018-06-01] MEDS: PIPERACILLIN/TAZOB 3.375 GM 3.375 GM in DEXTROSE 5%-WATER - 50 ML IVPB SCH ×3 (02:43→18:48)
[2018-06-01] MEDS: methylPREDNISolone NA SUCC 40 MG/1 ML VIAL IVPUSH SCH ×3 (02:43→17:37)
[2018-06-01 06:15] LABS: BASO % 0.1 % (0-2.0); HEMATOCRIT 41.4 % (32.4-45.2); HEMOGLOBIN 13.2 GM/dL (10.7-15.3); LYMPH % 4.8 % (8-40); MCH 28.8 pg (25.7-33.7); MCHC 31.8 g/dl (32.0-36.0); MEAN CELL VOLUME 90.6 fl (80-96); MEAN PLT VOLUME 7.7 fl (7.5-11.1); MONO % 1.7 % (3.8-10.2); NEUT % 93.4 % (42.8-82.8); PLATELET COUNT 266 K/MM3 (134-434); RBC 4.57 M/mm3 (3.60-5.2); WHITE BLOOD COUNT 11.2 K/mm3 (4.0-10.0)
[2018-06-01 07:54] LABS: ALBUMIN 3.2 g/dl (3.4-5.0); ALK PHOS 101 U/L (45-117); ANION GAP 3 MMOL/L (8-16); BILIRUBIN,TOTAL 0.2 mg/dL (0.2-1); BLOOD UREA NITROGEN 10 mg/dL (7-18); CALCIUM 8.3 mg/dL (8.5-10.1); CHLORIDE 111 mmol/L (98-107); CO2 27 mmol/L (21-32); CREATININE 0.6 mg/dL (0.55-1.3); GLUCOSE,RANDOM 135 mg/dL (74-106); MAGNESIUM 2.7 mg/dL (1.8-2.4); PHOSPHOROUS 4.2 mg/dL (2.5-4.9); POTASSIUM 5.1 mmol/L (3.5-5.1); SGOT/AST 34 U/L (15-37); SGPT/ALT 25 U/L (13-61); SODIUM 142 mmol/L (136-145)
[2018-06-01] MEDS: AZITHROMYCIN IVPB 500 MG/250 ML BAG IVPB SCH (09:10)
[2018-06-01] MEDS: PANTOPRAZOLE SODIUM 40 MG VIAL IVPUSH SCH (09:11)
[2018-06-01] MEDS ORDERED: PT OWN MED DRAWER 7, Y5N ONE (09:14)
[2018-06-01] MEDS ORDERED: AZITHROMYCIN IVPB 500 MG/250 ML BAG IVPB SCH (10:00)
[2018-06-01] MEDS ORDERED: CEFTRIAXONE 1 GM in DEXTROSE 5%-WATER - 50 ML IVPB SCH (10:00)
--- NOTE | 2018-06-01 10:54 | PN ---
Progress Note, Physician Chief Complaint: Ms Gaston says she is feeling much better today. Says her breathing is much improved, but still getting short of breath with exertion and talking. No cp or n/v. - Current Medication List Current Medications: Active Medications Albuterol Sulfate (Ventolin 0.083% Nebulizer Soln -) 1 amp NEB Q4H PRN PRN Reason: SHORT OF BREATH/WHEEZING Last Admin: 06/01/18 02:29 Dose: 1 amp Albuterol/Ipratropium (Duoneb -) 1 amp NEB RQ4H [facility] Last Admin: 06/01/18 08:20 Dose: 1 amp Chlorhexidine Gluconate (Hibiclens For Decolonization -) 1 applic TP HS [facility] Last Admin: 05/31/18 22:14 Dose: 1 applic Azithromycin (Zithromax 500mg Ivpb (Pre-Docked)) 500 mg in 250 mls @ 250 mls/ hr IVPB DAILY [facility] Last Admin: 06/01/18 09:10 Dose: 250 mls/hr Sodium Chloride (Normal Saline -) 1,000 mls @ 75 mls/hr IV ASDIR [facility] Last Admin: 05/31/18 12:00 Dose: 75 mls/hr Piperacillin Sod/Tazobactam (Sod 3.375 gm/ Dextrose) 50 mls @ 100 mls/hr IVPB Q8H-IV [facility]; Protocol Last Admin: 06/01/18 09:10 Dose: 100 mls/hr Methylprednisolone Sodium Succinate (Solu-Medrol -) 40 mg IVPUSH Q6H-IV [facility] Last Admin: 06/01/18 08:19 Dose: 40 mg Montelukast Sodium (Singulair -) 10 mg PO HS [facility] Last Admin: 05/31/18 22:13 Dose: 10 mg Mupirocin (Bactroban Ointment (For Decolonization) -) 1 applic NS BID [facility] Stop: 06/05/18 21:59 Last Admin: 05/31/18 22:13 Dose: 1 applic Pantoprazole Sodium (Protonix Iv) 40 mg IVPUSH DAILY [facility] Last Admin: 06/01/18 09:11 Dose: 40 mg - Objective Vital Signs: Vital Signs Temperature 36.8 C 06/01/18 10:00 Pulse Rate 111 H 06/01/18 10:00 Respiratory Rate 21 H 06/01/18 10:00 Blood Pressure 112/64 06/01/18 10:00 O2 Sat by Pulse Oximetry (%) 100 06/01/18 10:33 Constitutional: Yes: Well Nourished, No Distress, Calm Cardiovascular: Yes: Regular Rate and Rhythm. No: Gallop, Murmur, Rub Respiratory: Yes: Regular, On Nasal O2, Wheezes. No: CTA Bilaterally, Rales, Rhonchi Gastrointestinal: Yes: Normal Bowel Sounds, Soft. No: Distention, Tenderness Extremities: Yes: WNL Edema: No Labs: CBC, BMP 06/01/18 05:30 06/01/18 05:30 Problem List - Problems (1) Acute bronchitis due to infection Assessment/Plan: -suspect patient has a post infectious bronchitis -currently off of bipap -continue solumedrol -continue duonebs and singulair -pulmonary following Code(s): J20.8 - ACUTE BRONCHITIS DUE TO OTHER SPECIFIED ORGANISMS (2) Acute respiratory failure with hypoxia Assessment/Plan: -much improved -bipap titrated off -on nasal cannula -continue steroids, antibiotics, and bronchodilators Code(s): J96.01 - ACUTE RESPIRATORY FAILURE WITH HYPOXIA (3) Pneumonia Assessment/Plan: -appreciate ID assistance -continue zosyn and azithromycin Code(s): J18.9 - PNEUMONIA, UNSPECIFIED ORGANISM
[2018-06-01] MEDS: SODIUM CHLORIDE 1,000 ML IV SCH (11:45)
[2018-06-01] MEDS: MUPIROCIN 2% TOPICAL OINTMENT FOR DECOLONIZATION NS SCH ×2 (12:20→23:00)
--- NOTE | 2018-06-01 13:13 | PN ---
Teaching Attending Note Name of Resident: Clark Pardo ATTENDING PHYSICIAN STATEMENT I saw and evaluated the patient. I reviewed the resident's note and discussed the case with the resident. I agree with the resident's findings and plan as documented. SUBJECTIVE: Pt seen and examined in the ICU. Breathing much improved. Less cough and wheezing. OBJECTIVE: Vital Signs Period Temp Pulse Resp BP Sys/Massey Pulse Ox Last 24 Hr 97.7 F-99.5 F 82-120 16-23 108-155/58-92 96-100 Intake & Output 05/29/18 05/30/18 05/31/18 06/01/18 23:59 23:59 23:59 23:59 Intake Total 1600 2150 Output Total 2200 Balance -600 2150 Weight 61.552 kg 57.969 kg Gen: less tachypneic Heart: tachycardic, regular Lung: better air entry, scattered wheezes Abd: soft, nontender Ext: no edema CBC, BMP 06/01/18 05:30 06/01/18 05:30 Active Medications Albuterol Sulfate (Ventolin 0.083% Nebulizer Soln -) 1 amp NEB Q4H PRN PRN Reason: SHORT OF BREATH/WHEEZING Last Admin: 06/01/18 02:29 Dose: 1 amp Albuterol/Ipratropium (Duoneb -) 1 amp NEB RQID [facility] Chlorhexidine Gluconate (Hibiclens For Decolonization -) 1 applic TP HS [facility] Last Admin: 05/31/18 22:14 Dose: 1 applic Azithromycin (Zithromax 500mg Ivpb (Pre-Docked)) 500 mg in 250 mls @ 250 mls/ hr IVPB DAILY [facility] Last Admin: 06/01/18 09:10 Dose: 250 mls/hr Sodium Chloride (Normal Saline -) 1,000 mls @ 75 mls/hr IV ASDIR [facility] Last Admin: 05/31/18 12:00 Dose: 75 mls/hr Piperacillin Sod/Tazobactam (Sod 3.375 gm/ Dextrose) 50 mls @ 100 mls/hr IVPB Q8H-IV [facility]; Protocol Last Admin: 06/01/18 09:10 Dose: 100 mls/hr Methylprednisolone Sodium Succinate (Solu-Medrol -) 40 mg IVPUSH Q8H-IV [facility] Montelukast Sodium (Singulair -) 10 mg PO HS [facility] Last Admin: 05/31/18 22:13 Dose: 10 mg Mupirocin (Bactroban Ointment (For Decolonization) -) 1 applic NS BID [facility] Stop: 06/05/18 21:59 Last Admin: 06/01/18 12:20 Dose: 1 applic Pantoprazole Sodium (Protonix Iv) 40 mg IVPUSH DAILY [facility] Last Admin: 06/01/18 09:11 Dose: 40 mg ASSESSMENT AND PLAN: Acute Respiratory Failure requiring NIPPV Acute Bronchospasm r/o Pneumonia vs Acute Bronchitis Lactic Acidosis resolved - can taper medrol - inhaled bronchodilators standing and PRN - on empiric antibiotics, can d/c if cultures negative - O2 to keep Spo2 >90% - check peak flow - BiPAP as needed to assist in work of breathing - DVT prophylaxis - can monitor on floor
--- NOTE | 2018-06-01 14:31 | PN ---
Physical Exam: SUBJECTIVE: Patient seen and examined in the ICU. Breathing much improved. Less cough and wheezing, still having green sputum. OBJECTIVE: Vital Signs Period Temp Pulse Resp BP Sys/Massey Pulse Ox Last 24 Hr 97.7 F-99.5 F 82-120 16-23 108-140/58-78 96-100 GENERAL: AOX3 NAD HEAD: NCAT EARS, NOSE, THROAT: MMM NECK: Normal range of motion, supple without lymphadenopathy, JVD, or masses. LUNGS: CTAB, no accessory muscle use, speaking in full sentences HEART: RRR, normal S1 and S2 without murmur, tachycardia ABDOMEN: Soft, NTND, normoactive bowel sounds, no guarding, no rebound, no masses. MUSCULOSKELETAL: Normal range of motion at all joints. No bony deformities or tenderness. UPPER EXTREMITIES: 2+ pulses, warm, well-perfused. No cyanosis. LOWER EXTREMITIES: warm, well-perfused. No calf tenderness. No peripheral edema. SKIN: Warm, dry, Laboratory Results - last 24 hr 05/31/18 05/31/18 05/31/18 14:51 16:00 22:00 WBC RBC Hgb Hct MCV MCH MCHC RDW Plt Count MPV Absolute Neuts (auto) Neutrophils % Lymphocytes % Monocytes % Eosinophils % Basophils % Nucleated RBC % Sodium Potassium Chloride Carbon Dioxide Anion Gap BUN Creatinine Creat Clearance w eGFR Random Glucose Lactic Acid 2.2 H* 3.4 H* Calcium Phosphorus Magnesium Total Bilirubin AST ALT Alkaline Phosphatase Creatine Kinase Creatine Kinase Index CK-MB (CK-2) Total Protein Albumin Urine Color Straw Urine Appearance Clear Urine pH 7.0 Ur Specific [place] 1.015 Urine Protein Negative Urine Glucose (UA) 3+ H Urine Ketones Negative Urine Blood Negative Urine Nitrite Negative Urine Bilirubin Negative Urine Urobilinogen Negative Ur Leukocyte Esterase Negative 06/01/18 06/01/18 06/01/18 05:30 05:30 07:00 WBC 11.2 H RBC 4.57 Hgb 13.2 Hct 41.4 MCV 90.6 MCH 28.8 MCHC 31.8 L RDW 14.0 Plt Count 266 MPV 7.7 Absolute Neuts (auto) 10.4 H Neutrophils % 93.4 H Lymphocytes % 4.8 L D Monocytes % 1.7 L Eosinophils % 0.0 D Basophils % 0.1 Nucleated RBC % 0 Sodium 142 Potassium 5.1 Chloride 111 H Carbon Dioxide 27 Anion Gap 3 L BUN 10 Creatinine 0.6 Creat Clearance w eGFR > 60 Random Glucose 135 H Lactic Acid 2.1 H Calcium 8.3 L Phosphorus 4.2 Magnesium 2.7 H Total Bilirubin 0.2 AST 34 ALT 25 Alkaline Phosphatase 101 Creatine Kinase Creatine Kinase Index CK-MB (CK-2) Total Protein 7.0 Albumin 3.2 L Urine Color Urine Appearance Urine pH Ur Specific [place] Urine Protein Urine Glucose (UA) Urine Ketones Urine Blood Urine Nitrite Urine Bilirubin Urine Urobilinogen Ur Leukocyte Esterase 06/01/18 11:50 WBC RBC Hgb Hct MCV MCH MCHC RDW Plt Count MPV Absolute Neuts (auto) Neutrophils % Lymphocytes % Monocytes % Eosinophils % Basophils % Nucleated RBC % Sodium Potassium Chloride Carbon Dioxide Anion Gap BUN Creatinine Creat Clearance w eGFR Random Glucose Lactic Acid Calcium Phosphorus Magnesium Total Bilirubin AST ALT Alkaline Phosphatase Creatine Kinase 542 H Creatine Kinase Index 4.5 CK-MB (CK-2) 24.5 H Total Protein Albumin Urine Color Urine Appearance Urine pH Ur Specific [place] Urine Protein Urine Glucose (UA) Urine Ketones Urine Blood Urine Nitrite Urine Bilirubin Urine Urobilinogen Ur Leukocyte Esterase Active Medications Generic Name Dose Route Start Last Admin Trade Name Freq PRN Reason Stop Dose Admin Albuterol Sulfate 1 amp 05/31/18 11:47 06/01/18 02:29 Ventolin 0.083% Nebulizer Soln - NEB 1 amp Q4H PRN Administration SHORT OF BREATH/WHEEZING Albuterol/Ipratropium 1 amp 06/01/18 12:00 Duoneb - NEB RQID [facility] Chlorhexidine Gluconate 1 applic 05/31/18 22:00 05/31/18 22:14 Hibiclens For Decolonization - TP 1 applic HS [facility] Administration Azithromycin 500 mg in 250 mls @ 250 mls/hr 06/01/18 10:00 06/01/18 09:10 Zithromax 500mg Ivpb (Pre-Docked) IVPB 250 mls/hr DAILY [facility] Administration Sodium Chloride 1,000 mls @ 75 mls/hr 05/31/18 11:47 05/31/18 12:00 Normal Saline - IV 75 mls/hr ASDIR [facility] Administration Piperacillin Sod/Tazobactam 50 mls @ 100 mls/hr 05/31/18 14:15 06/01/18 09:10 Sod 3.375 gm/ Dextrose IVPB 100 mls/hr Q8H-IV [facility] Administration Protocol Methylprednisolone Sodium Succinate 40 mg 06/01/18 18:00 Solu-Medrol - IVPUSH Q8H-IV [facility] Montelukast Sodium 10 mg 05/31/18 22:00 05/31/18 22:13 Singulair - PO 10 mg HS [facility] Administration Mupirocin 1 applic 05/31/18 22:00 06/01/18 12:20 Bactroban Ointment (For Decolonization) - NS 06/05/18 21:59 1 applic BID [facility] Administration Pantoprazole Sodium 40 mg 06/01/18 10:00 06/01/18 09:11 Protonix Iv IVPUSH 40 mg DAILY [facility] Administration ASSESSMENT/PLAN: 63 y/o F with no PMH who was diagnosed with pneumonia 3 week ago now came to ER because of difficulty in breathing and cough. Found to have wheezing b/l R> L can taper medrol - inhaled bronchodilators standing and PRN - on empiric antibiotics, can d/c if cultures negative - O2 to keep Spo2 >90% - check peak flow - BiPAP as needed to assist in work of breathing - DVT prophylaxis - can monitor on floor NEURO intact, AOX3 CARDIO maintain MAP>65 cardiac monitoring NS 75cc/hr PULM Acute respiratory failure requiring NIPPV likely from acute asthma exabration from bronchospasm from cough ? pneumonia. 02 to keep spo2 > 90. decrease IV solumedrol to 40mg q8h Duoneb neb qid [facility] albuterol prn c/w zosyn/azithro per ID. pt still coughing green sputum montelucast flu, RSV, legionella, ucx neg daily peak flows off BIPAP, can resume if needed. on NC RENAL monitor Cr Lactic Acidosis resolved FEN NS 75cc/hr replete prn regular diet ppx SQH protonix Dispo: pt is stable and can be transferred to the floor. Further care per primary team/ PCP Visit type - Emergency Visit Emergency Visit: Yes ED Registration Date: 05/31/18 Care time: The patient presented to the Emergency Department on the above date and was hospitalized for further evaluation of their emergent condition. - New Patient This patient is new to me today: Yes Date on this admission: 06/01/18 - Critical Care Critical Care patient: Yes Total Critical Care Time (in minutes): 36 Critical Care Statement: The care of this patient involved high complexity decision making to prevent further life threatening deterioration of the patient 's condition and/or to evaluate & treat vital organ system(s) failure or risk of failure.
--- NOTE | 2018-06-01 14:32 | PN ---
Progress Note, Physician History of Present Illness: patient stable breathing much better patient stable still producing greenish sputum - Current Medication List Current Medications: Active Medications Albuterol Sulfate (Ventolin 0.083% Nebulizer Soln -) 1 amp NEB Q4H PRN PRN Reason: SHORT OF BREATH/WHEEZING Last Admin: 06/01/18 02:29 Dose: 1 amp Albuterol/Ipratropium (Duoneb -) 1 amp NEB RQID [facility] Chlorhexidine Gluconate (Hibiclens For Decolonization -) 1 applic TP HS [facility] Last Admin: 05/31/18 22:14 Dose: 1 applic Heparin Sodium (Porcine) (Heparin -) 5,000 unit SQ TID [facility] Azithromycin (Zithromax 500mg Ivpb (Pre-Docked)) 500 mg in 250 mls @ 250 mls/ hr IVPB DAILY [facility] Last Admin: 06/01/18 09:10 Dose: 250 mls/hr Sodium Chloride (Normal Saline -) 1,000 mls @ 75 mls/hr IV ASDIR [facility] Last Admin: 05/31/18 12:00 Dose: 75 mls/hr Piperacillin Sod/Tazobactam (Sod 3.375 gm/ Dextrose) 50 mls @ 100 mls/hr IVPB Q8H-IV [facility]; Protocol Last Admin: 06/01/18 09:10 Dose: 100 mls/hr Methylprednisolone Sodium Succinate (Solu-Medrol -) 40 mg IVPUSH Q8H-IV [facility] Montelukast Sodium (Singulair -) 10 mg PO HS [facility] Last Admin: 05/31/18 22:13 Dose: 10 mg Mupirocin (Bactroban Ointment (For Decolonization) -) 1 applic NS BID [facility] Stop: 06/05/18 21:59 Last Admin: 06/01/18 12:20 Dose: 1 applic Pantoprazole Sodium (Protonix Iv) 40 mg IVPUSH DAILY [facility] Last Admin: 06/01/18 09:11 Dose: 40 mg - Objective Vital Signs: Vital Signs Temperature 98.3 F 06/01/18 10:00 Pulse Rate 120 H 06/01/18 12:00 Respiratory Rate 23 H 06/01/18 12:00 Blood Pressure 114/78 06/01/18 12:00 O2 Sat by Pulse Oximetry (%) 100 11/15/18 10:33 Constitutional: Yes: No Distress, Calm Cardiovascular: Yes: Regular Rate and Rhythm Respiratory: Yes: Regular, CTA Bilaterally, Other (wheezing) Gastrointestinal: Yes: Normal Bowel Sounds, Soft Musculoskeletal: Yes: WNL Extremities: Yes: WNL Neurological: Yes: Alert, Oriented Psychiatric: Yes: Alert, Oriented Labs: CBC, BMP 06/01/18 05:30 06/01/18 05:30 Assessment/Plan Problem List - Problems (1) Acute respiratory failure with hypoxia Code(s): J96.01 - ACUTE RESPIRATORY FAILURE WITH HYPOXIA (2) Pneumonia Code(s): J18.9 - PNEUMONIA, UNSPECIFIED ORGANISM (3) SOB (shortness of breath) Code(s): R06.02 - SHORTNESS OF BREATH wheezing pneumonia plan we will continue iv abx for now rest continue as per icu incentive maycol cc 40 time
[2018-06-01 14:53] LABS: ACANTHOCYTES 0; ANISOCYTOSIS 0; HELMET CELLS 0; HOWELL-JOLLY BODIES 0; MACROCYTOSIS 0; OVALOCYTE 0; ROULEAU 0; SICKELED CELLS 0; TARGET CELLS 0; TEAR DROP CELLS 0; TOXIC GRANULATION 0
[2018-06-01 14:56] LABS: PLATELET ESTIMATE ADEQUATE
[2018-06-01] MEDS: HEPARIN NA (PORCINE) 5,000 UNITS/ML 1ML VIAL SQ SCH ×2 (15:19→23:00)
[2018-06-01] MEDS: LACTATED RINGERS SOLUTION 1,000 ML/1,000 ML INFUS.BAG IV SCH (16:33)
[2018-06-01] MEDS ORDERED: MONTELUKAST NA 10 MG TABLET PO SCH (22:00)
[2018-06-01] MEDS: CHLORHEXIDINE GLUCONATE 4% CLEANSER FOR DECOLONIZATION TP SCH (23:00)
[2018-06-01] MEDS: MONTELUKAST NA 10 MG TABLET PO SCH (23:00)
[2018-06-02] MEDS ORDERED: PIPERACILLIN/TAZOBACTAM 3.375 GM VIAL IVPB ONE ×4 (01:52→23:17)
[2018-06-02] MEDS ORDERED: DEXTROSE 5%-WATER - 50 ML IVPB ONE ×4 (01:52→23:17)
[2018-06-02] MEDS: PIPERACILLIN/TAZOB 3.375 GM 3.375 GM in DEXTROSE 5%-WATER - 50 ML IVPB SCH ×3 (02:08→17:33)
[2018-06-02] MEDS: methylPREDNISolone NA SUCC 40 MG/1 ML VIAL IVPUSH SCH ×3 (02:09→21:01)
[2018-06-02 06:26] LABS: ANION GAP 6 MMOL/L (8-16); BLOOD UREA NITROGEN 12 mg/dL (7-18); CALCIUM 8.6 mg/dL (8.5-10.1); CHLORIDE 108 mmol/L (98-107); CO2 27 mmol/L (21-32); CREATININE 0.6 mg/dL (0.55-1.3); GLUCOSE,RANDOM 109 mg/dL (74-106); MAGNESIUM 2.5 mg/dL (1.8-2.4); PHOSPHOROUS 3.5 mg/dL (2.5-4.9); POTASSIUM 4.4 mmol/L (3.5-5.1); SODIUM 141 mmol/L (136-145)
[2018-06-02] MEDS: HEPARIN NA (PORCINE) 5,000 UNITS/ML 1ML VIAL SQ SCH ×3 (06:29→21:01)
[2018-06-02 06:42] LABS: BASO % 0.2 % (0-2.0); HEMATOCRIT 40.6 % (32.4-45.2); HEMOGLOBIN 12.9 GM/dL (10.7-15.3); LYMPH % 6.4 % (8-40); MCH 28.5 pg (25.7-33.7); MCHC 31.7 g/dl (32.0-36.0); MEAN PLT VOLUME 8.1 fl (7.5-11.1); MONO % 3.7 % (3.8-10.2); NEUT % 89.7 % (42.8-82.8); PLATELET COUNT 297 K/MM3 (134-434); RBC 4.51 M/mm3 (3.60-5.2); RDW 13.8 % (11.6-15.6); WHITE BLOOD COUNT 15.9 K/mm3 (4.0-10.0)
[2018-06-02] MEDS: ALBUTEROL SO4 2.5/IPRATROPIUM 0.5 INH SOL 3 ML VIAL.NEB. NEB SCH ×4 (07:25→21:10)
[2018-06-02] MEDS: LACTATED RINGERS SOLUTION 1,000 ML/1,000 ML INFUS.BAG IV SCH (08:00)
[2018-06-02] MEDS: MUPIROCIN 2% TOPICAL OINTMENT FOR DECOLONIZATION NS SCH ×2 (10:00→21:02)
[2018-06-02] MEDS ORDERED: PT OWN MED DRAWER 7, Y5N ONE ×2 (10:17→20:12)
[2018-06-02] MEDS: PANTOPRAZOLE SODIUM 40 MG VIAL IVPUSH SCH (11:00)
[2018-06-02] MEDS: AZITHROMYCIN IVPB 500 MG/250 ML BAG IVPB SCH (11:01)
--- NOTE | 2018-06-02 12:22 | PN ---
Progress Note, Physician History of Present Illness: still with sob improving still with sputum production - Current Medication List Current Medications: Active Medications Albuterol Sulfate (Ventolin 0.083% Nebulizer Soln -) 1 amp NEB Q4H PRN PRN Reason: SHORT OF BREATH/WHEEZING Last Admin: 06/01/18 02:29 Dose: 1 amp Albuterol/Ipratropium (Duoneb -) 1 amp NEB RQID [facility] Last Admin: 06/02/18 11:50 Dose: 1 amp Chlorhexidine Gluconate (Hibiclens For Decolonization -) 1 applic TP HS [facility] Last Admin: 06/01/18 23:00 Dose: 1 applic Heparin Sodium (Porcine) (Heparin -) 5,000 unit SQ TID [facility] Last Admin: 06/02/18 06:29 Dose: 5,000 unit Azithromycin (Zithromax 500mg Ivpb (Pre-Docked)) 500 mg in 250 mls @ 250 mls/ hr IVPB DAILY [facility] Last Admin: 06/02/18 11:01 Dose: 250 mls/hr Piperacillin Sod/Tazobactam (Sod 3.375 gm/ Dextrose) 50 mls @ 100 mls/hr IVPB Q8H-IV [facility]; Protocol Last Admin: 06/02/18 10:59 Dose: 100 mls/hr Lactated Ringer's (Lactated Ringers Solution) 1,000 ml in 1,000 mls @ 75 mls/ hr IV ASDIR [facility] Last Admin: 06/02/18 08:00 Dose: 75 mls/hr Methylprednisolone Sodium Succinate (Solu-Medrol -) 40 mg IVPUSH BID [facility] Montelukast Sodium (Singulair -) 10 mg PO [facility] Last Admin: 06/01/18 23:00 Dose: 10 mg Mupirocin (Bactroban Ointment (For Decolonization) -) 1 applic NS BID [facility] Stop: 06/05/18 21:59 Last Admin: 06/02/18 10:00 Dose: 1 applic Pantoprazole Sodium (Protonix -) 40 mg PO DAILY [facility] - Objective Vital Signs: Vital Signs Temperature 98.7 F 06/02/18 09:57 Pulse Rate 90 06/02/18 11:59 Respiratory Rate 26 H 06/02/18 11:59 Blood Pressure 117/74 06/02/18 11:59 O2 Sat by Pulse Oximetry (%) 95 06/02/18 09:00 Constitutional: Yes: No Distress, Calm Cardiovascular: Yes: Regular Rate and Rhythm Respiratory: Yes: Regular, On Nasal O2, Poor Air Entry Gastrointestinal: Yes: Normal Bowel Sounds, Soft Musculoskeletal: Yes: WNL Extremities: Yes: WNL Neurological: Yes: Alert, Oriented Labs: CBC, BMP 06/02/18 05:30 06/02/18 05:30 Assessment/Plan Problem List - Problems (1) Acute respiratory failure with hypoxia Code(s): J96.01 - ACUTE RESPIRATORY FAILURE WITH HYPOXIA (2) Pneumonia Code(s): J18.9 - PNEUMONIA, UNSPECIFIED ORGANISM (3) SOB (shortness of breath) Code(s): R06.02 - SHORTNESS OF BREATH wheezing pneumonia plan continue zosyn resp support rest as per pul and the primary team
[2018-06-02 13:12] VITALS: BMI 23.3
--- NOTE | 2018-06-02 13:31 | PN ---
Progress Note, Physician Chief Complaint: Ms Gaston says she feels the same as yesterday. Shortness of breath is still present and still with a productive cough. No cp or n/v. - Current Medication List Current Medications: Active Medications Albuterol Sulfate (Ventolin 0.083% Nebulizer Soln -) 1 amp NEB Q4H PRN PRN Reason: SHORT OF BREATH/WHEEZING Last Admin: 06/01/18 02:29 Dose: 1 amp Albuterol/Ipratropium (Duoneb -) 1 amp NEB RQID [facility] Last Admin: 06/02/18 11:50 Dose: 1 amp Chlorhexidine Gluconate (Hibiclens For Decolonization -) 1 applic TP HS [facility] Last Admin: 06/01/18 23:00 Dose: 1 applic Heparin Sodium (Porcine) (Heparin -) 5,000 unit SQ TID [facility] Last Admin: 06/02/18 06:29 Dose: 5,000 unit Azithromycin (Zithromax 500mg Ivpb (Pre-Docked)) 500 mg in 250 mls @ 250 mls/ hr IVPB DAILY [facility] Last Admin: 06/02/18 11:01 Dose: 250 mls/hr Piperacillin Sod/Tazobactam (Sod 3.375 gm/ Dextrose) 50 mls @ 100 mls/hr IVPB Q8H-IV [facility]; Protocol Last Admin: 06/02/18 10:59 Dose: 100 mls/hr Lactated Ringer's (Lactated Ringers Solution) 1,000 ml in 1,000 mls @ 75 mls/ hr IV ASDIR [facility] Last Admin: 06/02/18 08:00 Dose: 75 mls/hr Methylprednisolone Sodium Succinate (Solu-Medrol -) 40 mg IVPUSH BID [facility] Montelukast Sodium (Singulair -) 10 mg PO HS [facility] Last Admin: 06/01/18 23:00 Dose: 10 mg Mupirocin (Bactroban Ointment (For Decolonization) -) 1 applic NS BID [facility] Stop: 06/05/18 21:59 Last Admin: 06/02/18 10:00 Dose: 1 applic Pantoprazole Sodium (Protonix -) 40 mg PO DAILY [facility] - Objective Vital Signs: Vital Signs Temperature 37.1 C 06/02/18 09:57 Pulse Rate 90 06/02/18 11:59 Respiratory Rate 26 H 06/02/18 11:59 Blood Pressure 117/74 06/02/18 11:59 O2 Sat by Pulse Oximetry (%) 95 06/02/18 09:00 Constitutional: Yes: Well Nourished, No Distress, Calm Cardiovascular: Yes: Regular Rate and Rhythm. No: Gallop, Murmur, Rub Respiratory: Yes: Regular, Rhonchi (slight, improved). No: CTA Bilaterally, Rales, Wheezes Gastrointestinal: Yes: Normal Bowel Sounds, Soft. No: Distention, Tenderness Extremities: Yes: WNL Edema: No Labs: CBC, BMP 06/02/18 05:30 06/02/18 05:30 Problem List - Problems (1) Acute bronchitis due to infection Code(s): J20.8 - ACUTE BRONCHITIS DUE TO OTHER SPECIFIED ORGANISMS (2) Acute respiratory failure with hypoxia Code(s): J96.01 - ACUTE RESPIRATORY FAILURE WITH HYPOXIA (3) Pneumonia Code(s): J18.9 - PNEUMONIA, UNSPECIFIED ORGANISM Assessment/Plan (1) Acute bronchitis due to infection Assessment/Plan: -suspect patient has a post infectious bronchitis -no longer requiring bipap -continue solumedrol, decreased to bid -continue duonebs and singulair -pulmonary following and note reviewed Code(s): J20.8 - ACUTE BRONCHITIS DUE TO OTHER SPECIFIED ORGANISMS (2) Acute respiratory failure with hypoxia Assessment/Plan: -much improved -bipap titrated off -currently off of nasal cannula -continue steroids, antibiotics, and bronchodilators Code(s): J96.01 - ACUTE RESPIRATORY FAILURE WITH HYPOXIA (3) Pneumonia Assessment/Plan: -appreciate ID assistance -continue zosyn and azithromycin Code(s): J18.9 - PNEUMONIA, UNSPECIFIED ORGANISM
--- NOTE | 2018-06-02 13:34 | PN ---
Physical Exam: SUBJECTIVE: Patient seen and examined in the ICU. Breathing much improved. Less cough and wheezing, still having green sputum. OBJECTIVE: Vital Signs Period Temp Pulse Resp BP Sys/Massey Pulse Ox Last 24 Hr 98.3 F-98.8 F 74-104 14-32 102-156/57-86 95-97 GENERAL: AOX3 NAD HEAD: NCAT EARS, NOSE, THROAT: MMM NECK: Normal range of motion, supple without lymphadenopathy, JVD, or masses. LUNGS: CTAB, no accessory muscle use, speaking in full sentences HEART: RRR, normal S1 and S2 without murmur, tachycardia ABDOMEN: Soft, NTND, normoactive bowel sounds, no guarding, no rebound, no masses. MUSCULOSKELETAL: Normal range of motion at all joints. No bony deformities or tenderness. UPPER EXTREMITIES: 2+ pulses, warm, well-perfused. No cyanosis. LOWER EXTREMITIES: warm, well-perfused. No calf tenderness. No peripheral edema. SKIN: Warm, dry, Laboratory Results - last 24 hr 06/01/18 06/02/18 06/02/18 05:30 05:30 05:30 WBC 15.9 H RBC 4.51 Hgb 12.9 Hct 40.6 MCV 90.0 MCH 28.5 MCHC 31.7 L RDW 13.8 Plt Count 297 MPV 8.1 Absolute Neuts (auto) 14.3 H Neutrophils % 89.7 H Neutrophils % (Manual) 82.0 Band Neutrophils % 9.0 Lymphocytes % 6.4 L D Lymphocytes % (Manual) 7.0 L Monocytes % 3.7 L D Monocytes % (Manual) 2 L Eosinophils % 0.0 Eosinophils % (Manual) 0.0 Basophils % 0.2 Basophils % (Manual) 0.0 Myelocytes % (Man) 0 Promyelocytes % (Man) 0 Blast Cells % (Manual) 0 Nucleated RBC % 0 Metamyelocytes 0 Hypochromia 0 Toxic Granulation 0 Dohle Bodies 0 Platelet Estimate Adequate Polychromasia 0 Poikilocytosis 0 Basophilic Stippling 0 Anisocytosis 0 Microcytosis 0 Macrocytosis 0 Spherocytes 0 Sickle Cells 0 Target Cells 0 Tear Drop Cells 0 Ovalocytes 0 Stomatocytes 0 Helmet Cells 0 [place] Bodies 0 [place] Rings 0 Mccool Cells 0 Acanthocytes (Spur) 0 Rouleaux 0 Fragmented RBCs 0 Schistocytes 0 Sodium 141 Potassium 4.4 Chloride 108 H Carbon Dioxide 27 Anion Gap 6 L BUN 12 Creatinine 0.6 Creat Clearance w eGFR > 60 Random Glucose 109 H Calcium 8.6 Phosphorus 3.5 Magnesium 2.5 H Creatine Kinase 557 H Creatine Kinase Index 3.4 CK-MB (CK-2) 19.2 H Active Medications Generic Name Dose Route Start Last Admin Trade Name Freq PRN Reason Stop Dose Admin Albuterol Sulfate 1 amp 05/31/18 11:47 06/01/18 02:29 Ventolin 0.083% Nebulizer Soln - NEB 1 amp Q4H PRN Administration SHORT OF BREATH/WHEEZING Albuterol/Ipratropium 1 amp 06/01/18 12:00 06/02/18 11:50 Duoneb - NEB 1 amp RQID [facility] Administration Chlorhexidine Gluconate 1 applic 05/31/18 22:00 06/01/18 23:00 Hibiclens For Decolonization - TP 1 applic HS [facility] Administration Heparin Sodium (Porcine) 5,000 unit 06/01/18 14:30 06/02/18 06:29 Heparin - SQ 5,000 unit TID [facility] Administration Azithromycin 500 mg in 250 mls @ 250 mls/hr 06/01/18 10:00 06/02/18 11:01 Zithromax 500mg Ivpb (Pre-Docked) IVPB 250 mls/hr DAILY [facility] Administration Piperacillin Sod/Tazobactam 50 mls @ 100 mls/hr 05/31/18 14:15 06/02/18 10:59 Sod 3.375 gm/ Dextrose IVPB 100 mls/hr Q8H-IV [facility] Administration Protocol Lactated Ringer's 1,000 ml in 1,000 mls @ 75 mls/hr 06/01/18 16:15 06/02/18 08:00 Lactated Ringers Solution IV 75 mls/hr ASDIR [facility] Administration Methylprednisolone Sodium Succinate 40 mg 06/02/18 22:00 Solu-Medrol - IVPUSH BID [facility] Montelukast Sodium 10 mg 05/31/18 22:00 06/01/18 23:00 Singulair - PO 10 mg HS [facility] Administration Mupirocin 1 applic 05/31/18 22:00 06/02/18 10:00 Bactroban Ointment (For Decolonization) - NS 06/05/18 21:59 1 applic BID [facility] Administration Pantoprazole Sodium 40 mg 06/03/18 10:00 Protonix - PO DAILY [facility] ASSESSMENT/PLAN: 63 y/o F with no PMH who was diagnosed with pneumonia 3 week ago now came to ER because of difficulty in breathing and cough. Found to have wheezing b/l R> L NEURO intact, AOX3 CARDIO maintain MAP>65 cardiac monitoring LR 75cc/hr PULM Acute respiratory failure requiring NIPPV 2/2 acute bronchospasm likely 2/2 pneumonia. 02 to keep spo2 > 90. decrease IV solumedrol to 40mg bid Duoneb neb qid kyaw albuterol prn c/w zosyn/azithro per ID. pt still coughing green sputum montelucast flu, RSV, legionella, ucx neg daily peak flows off BIPAP, can resume if needed. on NC RENAL monitor Cr Lactic Acidosis resolved FEN LR 75cc/hr replete prn regular diet ppx SQH protonix Dispo: pt is stable and can be transferred to the floor. Further care per primary team/ PCP Visit type - Emergency Visit Emergency Visit: Yes ED Registration Date: 05/31/18 Care time: The patient presented to the Emergency Department on the above date and was hospitalized for further evaluation of their emergent condition. - New Patient This patient is new to me today: Yes Date on this admission: 06/02/18 - Critical Care Critical Care patient: Yes Total Critical Care Time (in minutes): 37 Critical Care Statement: The care of this patient involved high complexity decision making to prevent further life threatening deterioration of the patient 's condition and/or to evaluate & treat vital organ system(s) failure or risk of failure.
--- NOTE | 2018-06-02 14:57 | PN ---
Teaching Attending Note Name of Resident: Clark Pardo ATTENDING PHYSICIAN STATEMENT I saw and evaluated the patient. I reviewed the resident's note and discussed the case with the resident. I agree with the resident's findings and plan as documented. SUBJECTIVE: Patient seen and examined in the ICU. Breathing much improved. Less cough and wheezing. OBJECTIVE: Intake & Output 05/30/18 05/31/18 06/01/18 06/02/18 23:59 23:59 23:59 23:59 Intake Total 1600 3840 680 Output Total 2200 500 1000 Balance -600 3340 -320 Weight 135 lb 11.2 oz 127 lb 12.8 oz 132 lb Last Vital Signs Temp Pulse Resp BP Pulse Ox 98.6 F 90 20 129/82 95 06/02/18 14:05 06/02/18 11:59 06/02/18 14:05 06/02/18 14:05 06/02/18 09:00 Active Medications Albuterol Sulfate (Ventolin 0.083% Nebulizer Soln -) 1 amp NEB Q4H PRN PRN Reason: SHORT OF BREATH/WHEEZING Last Admin: 06/01/18 02:29 Dose: 1 amp Albuterol/Ipratropium (Duoneb -) 1 amp NEB RQID [facility] Last Admin: 06/02/18 11:50 Dose: 1 amp Chlorhexidine Gluconate (Hibiclens For Decolonization -) 1 applic TP HS [facility] Last Admin: 06/01/18 23:00 Dose: 1 applic Heparin Sodium (Porcine) (Heparin -) 5,000 unit SQ TID [facility] Last Admin: 06/02/18 14:34 Dose: 5,000 unit Azithromycin (Zithromax 500mg Ivpb (Pre-Docked)) 500 mg in 250 mls @ 250 mls/ hr IVPB DAILY [facility] Last Admin: 06/02/18 11:01 Dose: 250 mls/hr Piperacillin Sod/Tazobactam (Sod 3.375 gm/ Dextrose) 50 mls @ 100 mls/hr IVPB Q8H-IV [facility]; Protocol Last Admin: 06/02/18 10:59 Dose: 100 mls/hr Lactated Ringer's (Lactated Ringers Solution) 1,000 ml in 1,000 mls @ 75 mls/ hr IV ASDIR [facility] Last Admin: 06/02/18 08:00 Dose: 75 mls/hr Methylprednisolone Sodium Succinate (Solu-Medrol -) 40 mg IVPUSH BID [facility] Montelukast Sodium (Singulair -) 10 mg PO HS [facility] Last Admin: 06/01/18 23:00 Dose: 10 mg Mupirocin (Bactroban Ointment (For Decolonization) -) 1 applic NS BID [facility] Stop: 06/05/18 21:59 Last Admin: 06/02/18 10:00 Dose: 1 applic Pantoprazole Sodium (Protonix -) 40 mg PO DAILY [facility] Gen: Awake and alert, NAD Heart: tachycardic, regular Lung: better air entry, scattered wheezes Abd: soft, nontender Ext: no edema Laboratory Results - last 24 hr 06/01/18 06/02/18 06/02/18 05:30 05:30 05:30 WBC 15.9 H RBC 4.51 Hgb 12.9 Hct 40.6 MCV 90.0 MCH 28.5 MCHC 31.7 L RDW 13.8 Plt Count 297 MPV 8.1 Absolute Neuts (auto) 14.3 H Neutrophils % 89.7 H Neutrophils % (Manual) 82.0 Band Neutrophils % 9.0 Lymphocytes % 6.4 L D Lymphocytes % (Manual) 7.0 L Monocytes % 3.7 L D Monocytes % (Manual) 2 L Eosinophils % 0.0 Eosinophils % (Manual) 0.0 Basophils % 0.2 Basophils % (Manual) 0.0 Myelocytes % (Man) 0 Promyelocytes % (Man) 0 Blast Cells % (Manual) 0 Nucleated RBC % 0 Metamyelocytes 0 Hypochromia 0 Toxic Granulation 0 Dohle Bodies 0 Platelet Estimate Adequate Polychromasia 0 Poikilocytosis 0 Basophilic Stippling 0 Anisocytosis 0 Microcytosis 0 Macrocytosis 0 Spherocytes 0 Sickle Cells 0 Target Cells 0 Tear Drop Cells 0 Ovalocytes 0 Stomatocytes 0 Helmet Cells 0 [place] Bodies 0 [place] Rings 0 Aviva Cells 0 Acanthocytes (Spur) 0 Rouleaux 0 Fragmented RBCs 0 Schistocytes 0 Sodium 141 Potassium 4.4 Chloride 108 H Carbon Dioxide 27 Anion Gap 6 L BUN 12 Creatinine 0.6 Creat Clearance w eGFR > 60 Random Glucose 109 H Calcium 8.6 Phosphorus 3.5 Magnesium 2.5 H Creatine Kinase 557 H Creatine Kinase Index 3.4 CK-MB (CK-2) 19.2 H ASSESSMENT AND PLAN: Acute Respiratory Failure requiring NIPPV Acute Bronchospasm r/o Pneumonia vs Acute Bronchitis Lactic Acidosis resolved - Taper medrol - inhaled bronchodilators standing and PRN - on empiric antibiotics, can d/c if cultures negative - O2 to keep Spo2 >90% - NIPPV as needed to assist in work of breathing - DVT prophylaxis - can monitor on floor Dr Escobar
[2018-06-02] MEDS ORDERED: BENZOCAINE/MENTH/CETYLPYRD CL 1 EACH LOZENGE MM PRN (19:23)
[2018-06-02] MEDS ORDERED: SENNOSIDES/DOCUSATE COMBO (SENNA PLUS) TABLET (UD) PO PRN (19:24)
[2018-06-02] MEDS: CHLORHEXIDINE GLUCONATE 4% CLEANSER FOR DECOLONIZATION TP SCH (21:02)
[2018-06-02] MEDS: MONTELUKAST NA 10 MG TABLET PO SCH (21:02)
[2018-06-03] MEDS ORDERED: PIPERACILLIN/TAZOBACTAM 3.375 GM VIAL IVPB ONE ×3 (02:31→18:41)
[2018-06-03] MEDS ORDERED: DEXTROSE 5%-WATER - 50 ML IVPB ONE ×3 (02:31→18:41)
[2018-06-03] MEDS: PIPERACILLIN/TAZOB 3.375 GM 3.375 GM in DEXTROSE 5%-WATER - 50 ML IVPB SCH ×3 (03:00→18:49)
[2018-06-03] MEDS: LACTATED RINGERS SOLUTION 1,000 ML/1,000 ML INFUS.BAG IV SCH (06:00)
[2018-06-03 06:19] LABS: BASO % 0.1 % (0-2.0); HEMATOCRIT 40.5 % (32.4-45.2); HEMOGLOBIN 12.6 GM/dL (10.7-15.3); LYMPH % 13.8 % (8-40); MCH 28.1 pg (25.7-33.7); MCHC 31.2 g/dl (32.0-36.0); MEAN CELL VOLUME 90.3 fl (80-96); MONO % 4.4 % (3.8-10.2); NEUT % 81.7 % (42.8-82.8); PLATELET COUNT 302 K/MM3 (134-434); RBC 4.48 M/mm3 (3.60-5.2); RDW 13.9 % (11.6-15.6)
[2018-06-03 06:31] LABS: ANION GAP 8 MMOL/L (8-16); BLOOD UREA NITROGEN 16 mg/dL (7-18); CALCIUM 8.3 mg/dL (8.5-10.1); CHLORIDE 106 mmol/L (98-107); CO2 25 mmol/L (21-32); CREATININE 0.6 mg/dL (0.55-1.3); GLUCOSE,RANDOM 100 mg/dL (74-106); MAGNESIUM 2.5 mg/dL (1.8-2.4); PHOSPHOROUS 3.4 mg/dL (2.5-4.9); POTASSIUM 4.2 mmol/L (3.5-5.1); SODIUM 140 mmol/L (136-145)
[2018-06-03] MEDS: HEPARIN NA (PORCINE) 5,000 UNITS/ML 1ML VIAL SQ SCH ×3 (06:51→21:55)
[2018-06-03] MEDS: ALBUTEROL SO4 2.5/IPRATROPIUM 0.5 INH SOL 3 ML VIAL.NEB. NEB SCH ×4 (07:30→21:01)
--- NOTE | 2018-06-03 08:37 | PN ---
Progress Note, Physician Chief Complaint: Mrs Gaston says she is feeling much better. Cough is improved and shortness of breath resolved. Denies cp and n/v. Hoping for discharge tomorrow so she can go to [facility]. - Current Medication List Current Medications: Active Medications Albuterol Sulfate (Ventolin 0.083% Nebulizer Soln -) 1 amp NEB Q4H PRN PRN Reason: SHORT OF BREATH/WHEEZING Last Admin: 06/01/18 02:29 Dose: 1 amp Albuterol/Ipratropium (Duoneb -) 1 amp NEB RQID [facility] Last Admin: 06/02/18 21:10 Dose: 1 amp Benzocaine/Menthol (Cepacol Lozenge -) 2 each MM DAILY PRN PRN Reason: SORE THROAT Chlorhexidine Gluconate (Hibiclens For Decolonization -) 1 applic TP HS [facility] Last Admin: 06/02/18 21:02 Dose: 1 applic Heparin Sodium (Porcine) (Heparin -) 5,000 unit SQ TID [facility] Last Admin: 06/03/18 06:51 Dose: 5,000 unit Azithromycin (Zithromax 500mg Ivpb (Pre-Docked)) 500 mg in 250 mls @ 250 mls/ hr IVPB DAILY [facility] Last Admin: 06/02/18 11:01 Dose: 250 mls/hr Piperacillin Sod/Tazobactam (Sod 3.375 gm/ Dextrose) 50 mls @ 100 mls/hr IVPB Q8H-IV [facility]; Protocol Last Admin: 06/03/18 03:00 Dose: 100 mls/hr Lactated Ringer's (Lactated Ringers Solution) 1,000 ml in 1,000 mls @ 75 mls/ hr IV ASDIR [facility] Last Admin: 06/03/18 06:00 Dose: 75 mls/hr Methylprednisolone Sodium Succinate (Solu-Medrol -) 40 mg IVPUSH BID [facility] Last Admin: 06/02/18 21:01 Dose: 40 mg Montelukast Sodium (Singulair -) 10 mg PO HS [facility] Last Admin: 06/02/18 21:02 Dose: 10 mg Mupirocin (Bactroban Ointment (For Decolonization) -) 1 applic NS BID [facility] Stop: 06/05/18 21:59 Last Admin: 11/16/18 21:02 Dose: 1 applic Pantoprazole Sodium (Protonix -) 40 mg PO DAILY [facility] Senna/Docusate Sodium (Pericolace -) 2 tablet PO HS PRN PRN Reason: CONSTIPATION Last Admin: 06/02/18 21:02 Dose: 2 tablet - Objective Vital Signs: Vital Signs Temperature 36.9 C 06/03/18 06:00 Pulse Rate 90 06/03/18 08:14 Respiratory Rate 17 06/03/18 08:14 Blood Pressure 142/83 06/03/18 08:14 O2 Sat by Pulse Oximetry (%) 96 06/03/18 08:12 Constitutional: Yes: Well Nourished, No Distress, Calm Cardiovascular: Yes: Regular Rate and Rhythm. No: Gallop, Murmur, Rub Respiratory: Yes: Regular, CTA Bilaterally. No: Rales, Rhonchi, Wheezes Gastrointestinal: Yes: Normal Bowel Sounds, Soft. No: Distention, Tenderness Extremities: Yes: WNL Edema: No Labs: CBC, BMP 06/03/18 05:30 06/03/18 05:30 Problem List - Problems (1) Acute bronchitis due to infection Code(s): J20.8 - ACUTE BRONCHITIS DUE TO OTHER SPECIFIED ORGANISMS (2) Acute respiratory failure with hypoxia Code(s): J96.01 - ACUTE RESPIRATORY FAILURE WITH HYPOXIA (3) Pneumonia Code(s): J18.9 - PNEUMONIA, UNSPECIFIED ORGANISM Assessment/Plan (1) Acute bronchitis due to infection Assessment/Plan: -suspect patient has a post infectious bronchitis -almost at baseline today -plan to transition to oral prednisone with taper tomorrow -continue duonebs and singulair Code(s): J20.8 - ACUTE BRONCHITIS DUE TO OTHER SPECIFIED ORGANISMS (2) Acute respiratory failure with hypoxia Assessment/Plan: -resolved Code(s): J96.01 - ACUTE RESPIRATORY FAILURE WITH HYPOXIA (3) Pneumonia Assessment/Plan: -appreciate ID assistance -will d/w Dr Guevara -? if can change to oral antibiotics or stop Code(s): J18.9 - PNEUMONIA, UNSPECIFIED ORGANISM Dispo -plan for discharge tomorrow
[2018-06-03] MEDS ORDERED: PANTOPRAZOLE 40 MG TABLET (FP) PO SCH (10:00)
[2018-06-03] MEDS: methylPREDNISolone NA SUCC 40 MG/1 ML VIAL IVPUSH SCH ×2 (10:08→21:55)
[2018-06-03] MEDS: AZITHROMYCIN IVPB 500 MG/250 ML BAG IVPB SCH (10:08)
[2018-06-03] MEDS: MUPIROCIN 2% TOPICAL OINTMENT FOR DECOLONIZATION NS SCH (10:09)
--- NOTE | 2018-06-03 10:10 | PN ---
Progress Note (short form) - Note Progress Note: Pulm/ccm SUBJECTIVE: Patient seen and examined in the ICU. -no events, conts to improve, plan for d/c home tomorrow per Jo Ann, in for floor bed Vital Signs Temp 98.5 F 06/03/18 06:00 Pulse 90 06/03/18 08:14 Resp 17 06/03/18 08:14 BP 142/83 06/03/18 08:14 Pulse Ox 96 06/03/18 08:12 Intake & Output 06/02/18 06/02/18 06/03/18 11:59 23:59 11:59 Intake Total 680 950 850 Output Total 1000 500 Balance -320 450 850 Weight 60 kg 59.874 kg 59.012 kg Intake: IV 580 600 600 LACTATED RINGERS SOLUTION 580 600 600 1,000 ml In 1,000 ml @ 75 mls/hr IV ASDIR [facility] Rx #:[id number] IVPB 100 350 50 Oral 200 Output: Urine 1000 500 Void 1000 500 Other: Voiding Method Toilet Toilet Toilet # Unmeasured Voids Void 1 2 Bowel Movement No No Height 5 ft 3 in Body Mass Index (BMI) 23.3 Weight Measurement Method Built in Bedscale Built in Bedscale Active Medications Albuterol Sulfate (Ventolin 0.083% Nebulizer Soln -) 1 amp NEB Q4H PRN PRN Reason: SHORT OF BREATH/WHEEZING Last Admin: 06/01/18 02:29 Dose: 1 amp Albuterol/Ipratropium (Duoneb -) 1 amp NEB RQID [facility] Last Admin: 06/03/18 07:30 Dose: 1 amp Benzocaine/Menthol (Cepacol Lozenge -) 2 each MM DAILY PRN PRN Reason: SORE THROAT Chlorhexidine Gluconate (Hibiclens For Decolonization -) 1 applic TP HS [facility] Last Admin: 06/02/18 21:02 Dose: 1 applic Heparin Sodium (Porcine) (Heparin -) 5,000 unit SQ TID [facility] Last Admin: 06/03/18 06:51 Dose: 5,000 unit Azithromycin (Zithromax 500mg Ivpb (Pre-Docked)) 500 mg in 250 mls @ 250 mls/ hr IVPB DAILY [facility] Last Admin: 06/03/18 10:08 Dose: 250 mls/hr Piperacillin Sod/Tazobactam (Sod 3.375 gm/ Dextrose) 50 mls @ 100 mls/hr IVPB Q8H-IV [facility]; Protocol Last Admin: 06/03/18 10:07 Dose: 100 mls/hr Lactated Ringer's (Lactated Ringers Solution) 1,000 ml in 1,000 mls @ 75 mls/ hr IV ASDIR [facility] Last Admin: 06/03/18 06:00 Dose: 75 mls/hr Methylprednisolone Sodium Succinate (Solu-Medrol -) 40 mg IVPUSH BID [facility] Last Admin: 06/03/18 10:08 Dose: 40 mg Montelukast Sodium (Singulair -) 10 mg PO HS [facility] Last Admin: 06/02/18 21:02 Dose: 10 mg Mupirocin (Bactroban Ointment (For Decolonization) -) 1 applic NS BID [facility] Stop: 06/05/18 21:59 Last Admin: 06/03/18 10:09 Dose: 1 applic Pantoprazole Sodium (Protonix -) 40 mg PO DAILY [facility] Last Admin: 06/03/18 10:08 Dose: 40 mg Senna/Docusate Sodium (Pericolace -) 2 tablet PO HS PRN PRN Reason: CONSTIPATION Last Admin: 06/02/18 21:02 Dose: 2 tablet Gen: Awake and alert, INAD Heart: tachycardic, regular Lung: no wheezes, no accessory muscle use, good entry Abd: soft, nontender Ext: no edema Laboratory Results - last 24 hr 06/03/18 06/03/18 05:30 05:30 WBC 11.0 H RBC 4.48 Hgb 12.6 Hct 40.5 MCV 90.3 MCH 28.1 MCHC 31.2 L RDW 13.9 Plt Count 302 MPV 8.0 Absolute Neuts (auto) 9.0 H Neutrophils % 81.7 Lymphocytes % 13.8 D Monocytes % 4.4 Eosinophils % 0.0 Basophils % 0.1 Nucleated RBC % 0 Sodium 140 Potassium 4.2 Chloride 106 Carbon Dioxide 25 Anion Gap 8 BUN 16 Creatinine 0.6 Creat Clearance w eGFR > 60 Random Glucose 100 Calcium 8.3 L Phosphorus 3.4 Magnesium 2.5 H Microbiology 05/31/18 01:27 Blood - Peripheral Venous Blood Culture - Preliminary NO GROWTH OBTAINED AFTER 72 HOURS, INCUBATION TO CONTINUE FOR 2 DAYS. 05/31/18 01:27 Blood - Peripheral Venous Blood Culture - Preliminary NO GROWTH OBTAINED AFTER 72 HOURS, INCUBATION TO CONTINUE FOR 2 DAYS. 05/31/18 12:30 Sputum - Expectorated Gram Stain - Final 05/31/18 12:30 Sputum - Expectorated Sputum Culture - Final NORMAL RESPIRATORY JEANNETTE 05/31/18 15:30 Urine - Urine Clean Catch Legionella Antigen - Final 05/31/18 15:30 Urine - Urine Clean Catch Streptococcus pneumoniae Antigen ( M - Final 05/31/18 14:51 Urine - Urine Clean Catch Urine Culture - Final NO GROWTH OBTAINED ASSESSMENT AND PLAN: Acute Respiratory Failure requiring NIPPV Acute Bronchospasm r/o Pneumonia vs Acute Bronchitis Lactic Acidosis resolved - Taper medrol---To quick pred taper tomorrow on discharge - inhaled bronchodilators standing and PRN - on empiric antibiotics, can d/c if cultures negative - O2 to keep Spo2 >90% - DVT prophylaxis - can monitor on floor or d/c in am [id number]
--- NOTE | 2018-06-03 14:49 | PN ---
Progress Note, Physician History of Present Illness: patient feels much better still with dark and greenish sputum breathing has improved remaining afebrile - Current Medication List Current Medications: Active Medications Albuterol Sulfate (Ventolin 0.083% Nebulizer Soln -) 1 amp NEB Q4H PRN PRN Reason: SHORT OF BREATH/WHEEZING Last Admin: 06/01/18 02:29 Dose: 1 amp Albuterol/Ipratropium (Duoneb -) 1 amp NEB RQID [facility] Last Admin: 06/03/18 11:20 Dose: 1 amp Benzocaine/Menthol (Cepacol Lozenge -) 2 each MM DAILY PRN PRN Reason: SORE THROAT Chlorhexidine Gluconate (Hibiclens For Decolonization -) 1 applic TP HS [facility] Last Admin: 06/02/18 21:02 Dose: 1 applic Heparin Sodium (Porcine) (Heparin -) 5,000 unit SQ TID [facility] Last Admin: 06/03/18 14:13 Dose: 5,000 unit Azithromycin (Zithromax 500mg Ivpb (Pre-Docked)) 500 mg in 250 mls @ 250 mls/ hr IVPB DAILY [facility] Last Admin: 06/03/18 10:08 Dose: 250 mls/hr Piperacillin Sod/Tazobactam (Sod 3.375 gm/ Dextrose) 50 mls @ 100 mls/hr IVPB Q8H-IV [facility]; Protocol Last Admin: 06/03/18 10:07 Dose: 100 mls/hr Lactated Ringer's (Lactated Ringers Solution) 1,000 ml in 1,000 mls @ 75 mls/ hr IV ASDIR [facility] Last Admin: 06/03/18 06:00 Dose: 75 mls/hr Methylprednisolone Sodium Succinate (Solu-Medrol -) 40 mg IVPUSH BID [facility] Last Admin: 06/03/18 10:08 Dose: 40 mg Montelukast Sodium (Singulair -) 10 mg PO HS [facility] Last Admin: 06/02/18 21:02 Dose: 10 mg Mupirocin (Bactroban Ointment (For Decolonization) -) 1 applic NS BID [facility] Stop: 06/05/18 21:59 Last Admin: 06/03/18 10:09 Dose: 1 applic Pantoprazole Sodium (Protonix -) 40 mg PO DAILY [facility] Last Admin: 06/03/18 10:08 Dose: 40 mg Senna/Docusate Sodium (Pericolace -) 2 tablet PO HS PRN PRN Reason: CONSTIPATION Last Admin: 06/02/18 21:02 Dose: 2 tablet - Objective Vital Signs: Vital Signs Temperature 98.0 F 06/03/18 14:00 Pulse Rate 82 06/03/18 14:00 Respiratory Rate 17 06/03/18 14:00 Blood Pressure 124/88 06/03/18 14:00 O2 Sat by Pulse Oximetry (%) 96 06/03/18 08:12 Constitutional: Yes: Calm Eyes: Yes: Conjunctiva Clear Cardiovascular: Yes: Regular Rate and Rhythm Respiratory: Yes: Regular, Poor Air Entry, Rhonchi Gastrointestinal: Yes: Normal Bowel Sounds, Soft Musculoskeletal: Yes: WNL Extremities: Yes: WNL Neurological: Yes: Alert, Oriented Psychiatric: Yes: Alert, Oriented Labs: CBC, BMP 06/03/18 05:30 06/03/18 05:30 Assessment/Plan Problem List - Problems (1) Acute respiratory failure with hypoxia Code(s): J96.01 - ACUTE RESPIRATORY FAILURE WITH HYPOXIA (2) Pneumonia Code(s): J18.9 - PNEUMONIA, UNSPECIFIED ORGANISM (3) SOB (shortness of breath) Code(s): R06.02 - SHORTNESS OF BREATH wheezing pneumonia plan continue abx incentive maycol will probably be able to change to oral tomorrow will d/w with the primary team rest as per icu cc 37 min
[2018-06-03] MEDS ORDERED: ALBUTEROL SO4 0.083% IH SOL 2.5 MG/3 ML VIAL.NEB. NEB PRN (19:57)
[2018-06-03] MEDS ORDERED: MONTELUKAST NA 10 MG TABLET PO SCH (22:00)
[2018-06-04] MEDS ORDERED: PIPERACILLIN/TAZOBACTAM 3.375 GM VIAL IVPB ONE ×2 (01:08→10:07)
[2018-06-04] MEDS ORDERED: DEXTROSE 5%-WATER - 50 ML IVPB ONE ×2 (01:08→10:08)
[2018-06-04] MEDS: PIPERACILLIN/TAZOB 3.375 GM 3.375 GM in DEXTROSE 5%-WATER - 50 ML IVPB SCH ×2 (01:30→10:12)
[2018-06-04 06:01] VITALS: BP 117/72; PULSE 53; TEMP 97.8
[2018-06-04] MEDS: HEPARIN NA (PORCINE) 5,000 UNITS/ML 1ML VIAL SQ SCH ×2 (06:04→13:47)
[2018-06-04 07:21] LABS: BASO % 0.3 % (0-2.0); EOS % 0.1 % (0-4.5); HEMATOCRIT 43.7 % (32.4-45.2); HEMOGLOBIN 13.9 GM/dL (10.7-15.3); LYMPH % 21.8 % (8-40); MCH 28.6 pg (25.7-33.7); MCHC 31.9 g/dl (32.0-36.0); MEAN CELL VOLUME 89.8 fl (80-96); MEAN PLT VOLUME 7.9 fl (7.5-11.1); MONO % 4.9 % (3.8-10.2); NEUT % 72.9 % (42.8-82.8); PLATELET COUNT 318 K/MM3 (134-434); RBC 4.86 M/mm3 (3.60-5.2); RDW 13.8 % (11.6-15.6); WHITE BLOOD COUNT 7.3 K/mm3 (4.0-10.0)
[2018-06-04] MEDS: ALBUTEROL SO4 2.5/IPRATROPIUM 0.5 INH SOL 3 ML VIAL.NEB. NEB SCH ×2 (07:50→12:43)
[2018-06-04 07:56] LABS: ANION GAP 9 MMOL/L (8-16); BLOOD UREA NITROGEN 17 mg/dL (7-18); CHLORIDE 103 mmol/L (98-107); CO2 25 mmol/L (21-32); CREATININE 0.6 mg/dL (0.55-1.3); GLUCOSE,RANDOM 95 mg/dL (74-106); MAGNESIUM 2.6 mg/dL (1.8-2.4); PHOSPHOROUS 4.3 mg/dL (2.5-4.9); POTASSIUM 4.7 mmol/L (3.5-5.1); SODIUM 137 mmol/L (136-145)
[2018-06-04] MEDS ORDERED: PANTOPRAZOLE 40 MG TABLET (FP) PO SCH (10:00)
[2018-06-04] MEDS ORDERED: MUPIROCIN 2% TOPICAL OINTMENT 22 GM TUBE TP SCH (10:00)
[2018-06-04] MEDS ORDERED: AZITHROMYCIN IVPB 500 MG/250 ML BAG IVPB SCH (10:00)
[2018-06-04] MEDS: methylPREDNISolone NA SUCC 40 MG/1 ML VIAL IVPUSH SCH (10:12)
[2018-06-04 10:44] LABS: ACANTHOCYTES 0; ANISOCYTOSIS 0; HELMET CELLS 0; HOWELL-JOLLY BODIES 0; MACROCYTOSIS 0; OVALOCYTE 0; PLATELET ESTIMATE NORMAL; ROULEAU 0; SICKELED CELLS 0; TARGET CELLS 0; TEAR DROP CELLS 0; TOXIC GRANULATION 0
--- NOTE | 2018-06-04 11:31 | DS ---
Physical Examination Vital Signs: Vital Signs Temperature 36.6 C 06/04/18 10:00 Pulse Rate 53 L 06/04/18 10:00 Respiratory Rate 18 06/04/18 10:00 Blood Pressure 117/72 06/04/18 10:00 O2 Sat by Pulse Oximetry (%) 96 06/04/18 09:00 Constitutional: Yes: Well Nourished, No Distress, Calm Cardiovascular: Yes: Regular Rate and Rhythm. No: Gallop, Murmur, Rub Respiratory: Yes: Regular, CTA Bilaterally. No: Rales, Rhonchi, Wheezes Gastrointestinal: Yes: Normal Bowel Sounds, Soft. No: Distention, Tenderness Extremities: Yes: WNL Edema: No Labs: CBC, BMP 06/04/18 06:15 06/04/18 06:15 Discharge Summary Reason For Visit: PNEUMONIA TACHYCARDIA INCREASED OXYGEN Current Active Problems Acute bronchitis due to infection (Acute) Acute respiratory failure with hypoxia (Acute) Increased oxygen demand (Acute) Pneumonia (Acute) SOB (shortness of breath) (Acute) Tachycardia (Acute) Tachypnea (Acute) Hospital Course: (1) Acute bronchitis due to infection Code(s): J20.8 - ACUTE BRONCHITIS DUE TO OTHER SPECIFIED ORGANISMS (2) Acute respiratory failure with hypoxia Code(s): J96.01 - ACUTE RESPIRATORY FAILURE WITH HYPOXIA (3) Pneumonia Code(s): J18.9 - PNEUMONIA, UNSPECIFIED ORGANISM Mrs Gaston is a very pleasant 63 year old female who came in with acute hypoxic respiratory failure secondary to pneumonia causing acute bronchitis. She was originally admitted to the ICU because she was unstable and requiring bipap. She was started on zosyn and zithromax and given IV solumedrol. She was safely tapered off of bipap to room air on this regimen. She continued to improve and her steroids were titrated down. She is currently stable for discharge home. She will finish her course of antibiotics with levaquin. She will be discharged on a steroids taper. 31 minutes spent in preparation of this discharge. Condition: Good - Instructions Diet, Activity, Other Instructions: resume previous diet and activity. Referrals: Joanie Francis MD [Staff Physician] - Travis Ivey MD, MD [Staff Physician] - Disposition: HOME - Home Medications Comprehensive Discharge Medication List: Ambulatory Orders Albuterol Sulfate [Proair Hfa] 8.5 gm IH Q6H 05/31/18 Lactobacillus Acidophilus [Acidophilus Lactobacilli] 1 each PO DAILY #14 capsule 06/04/18 Levofloxacin [Levaquin] 500 mg PO DAILY #5 tablet 06/04/18 Montelukast Na [Singulair -] 10 mg PO HS #30 tablet 06/04/18 Pantoprazole Sodium [Protonix -] 40 mg PO DAILY #10 tablet.ec 06/04/18 predniSONE [Deltasone -] 5 mg PO ASDIR #78 tab 06/04/18
--- NOTE | 2018-06-04 12:55 | PN ---
Progress Note, Physician History of Present Illness: stable no new issues breathing better - Current Medication List Current Medications: Active Medications Albuterol Sulfate (Ventolin 0.083% Nebulizer Soln -) 1 amp NEB Q4H PRN PRN Reason: SHORT OF BREATH/WHEEZING Albuterol/Ipratropium (Duoneb -) 1 amp NEB RQID [facility] Last Admin: 06/04/18 12:43 Dose: 1 amp Benzocaine/Menthol (Cepacol Lozenge -) 2 each MM DAILY PRN PRN Reason: SORE THROAT Heparin Sodium (Porcine) (Heparin -) 5,000 unit SQ TID [facility] Last Admin: 06/04/18 06:04 Dose: 5,000 unit Azithromycin (Zithromax 500mg Ivpb (Pre-Docked)) 500 mg in 250 mls @ 250 mls/ hr IVPB DAILY [facility] Last Admin: 06/04/18 10:11 Dose: 250 mls/hr Piperacillin Sod/Tazobactam (Sod 3.375 gm/ Dextrose) 50 mls @ 100 mls/hr IVPB Q8H-IV [facility]; Protocol Last Admin: 06/04/18 10:12 Dose: 100 mls/hr Methylprednisolone Sodium Succinate (Solu-Medrol -) 40 mg IVPUSH BID [facility] Last Admin: 06/04/18 10:12 Dose: 40 mg Montelukast Sodium (Singulair -) 10 mg PO HS [facility] Last Admin: 06/03/18 21:55 Dose: 10 mg Mupirocin (Bactroban 2% Ointment -) 1 applic TP BID [facility] Last Admin: 06/04/18 10:30 Dose: Not Given Pantoprazole Sodium (Protonix -) 40 mg PO DAILY [facility] Last Admin: 06/04/18 10:12 Dose: 40 mg Senna/Docusate Sodium (Pericolace -) 2 tablet PO HS PRN PRN Reason: CONSTIPATION Last Admin: 06/02/18 21:02 Dose: 2 tablet - Objective Vital Signs: Vital Signs Temperature 97.8 F 06/04/18 10:00 Pulse Rate 53 L 06/04/18 10:00 Respiratory Rate 18 06/04/18 10:00 Blood Pressure 117/72 06/04/18 10:00 O2 Sat by Pulse Oximetry (%) 96 06/04/18 09:00 Constitutional: Yes: No Distress, Calm Cardiovascular: Yes: Regular Rate and Rhythm Respiratory: Yes: Regular, CTA Bilaterally Gastrointestinal: Yes: Normal Bowel Sounds, Soft Musculoskeletal: Yes: WNL Extremities: Yes: WNL Neurological: Yes: Alert, Oriented Psychiatric: Yes: Alert, Oriented Labs: CBC, BMP 06/04/18 06:15 06/04/18 06:15 Assessment/Plan Problem List - Problems (1) Acute respiratory failure with hypoxia Code(s): J96.01 - ACUTE RESPIRATORY FAILURE WITH HYPOXIA (2) Pneumonia Code(s): J18.9 - PNEUMONIA, UNSPECIFIED ORGANISM (3) SOB (shortness of breath) Code(s): R06.02 - SHORTNESS OF BREATH wheezing pneumonia plan oral abx as planned incentive maycol
== END 2018-06-04 14:27 | disposition home or self-care (01) | DRG 193 ==
LOC: JER 00:23 → JERBED 06:09 → JICU 10:15 → OBSVTOIN 11:56 → J7W 06-03 19:53
PROVIDERS: ADMIT Internal Medicine; ATTEND Internal Medicine
DX: J18.9 Pneumonia, unspecified organism (principal); J96.01 Acute respiratory failure with hypoxia; J45.901 Unspecified asthma with (acute) exacerbation; E87.2 Acidosis; R00.0 Tachycardia, unspecified; J20.8 Acute bronchitis due to other specified organisms
CPT/HCPCS: 36415; 36600; 71275-TC; 80048; 80053; 81003; 82550; 82553; 82803; 83605; 83735; 83880; 84100; 84484; 85025; 87040; 87070; 87086; 87205; 87804; 87899; 93005; 93010; 93306-TC; 94010; 94150; 94640; 94660; 99285-25; G0378; J0131; J1644; J7030

== ENCOUNTER 2020-12-30 11:16 | Emergency (ER) | payer BC ==
[2020-12-30 11:22] VITALS: BP 129/76; PULSE 69; TEMP 98.5; BMI 23.3
[2020-12-30] MEDS ORDERED: ACETAMINOPHEN 325 MG TABLET (FP) PO ONE (13:07)
[2020-12-30] MEDS ORDERED: ACETAMINOPHEN 325 MG TABLET (FP) ONE (13:08)
== END 2020-12-30 14:15 | disposition home or self-care (01) ==
LOC: JERFT 11:16
PROC: 08QNXZZ Repair Right Upper Eyelid, External Approach (ICD-10-PCS; principal; 2020-12-30)
DX: S00.83XA Contusion of other part of head, initial encounter (principal); S01.111A Laceration without foreign body of right eyelid and periocular area, initial encounter
CPT/HCPCS: 70450-TC; 70486-TC; 73110-TC-LT-FY; 73130-TC-LT-FY; 99285-25

== ENCOUNTER 2021-01-03 10:44 | Emergency (ER) | payer BC ==
[2021-01-03 10:51] VITALS: BP 125/77; PULSE 65; TEMP 98.6; BMI 23.3
== END 2021-01-03 11:11 | disposition home or self-care (01) ==
LOC: JERFT 10:44
DX: Z48.02 Encounter for removal of sutures (principal)
CPT/HCPCS: 99281-25